=== PATIENT | female | born 1935 | race Caucasian/White ===

== ENCOUNTER → 2016-08-30 | Outpatient (CLI) | payer OTHER ==
--- NOTE | 2016-08-30 19:01 | US ---
Limited Right Upper Quadrant Ultrasound Indication: Post biliary stent placement. Evaluate ductal dilatation. The patient is not having an y other treatment. Technique: Right upper quadrant ultrasound is performed. Comparison: July 08, 2016. Findings: The degree of intrahepatic biliary duct dilatation is significantly reduced, although ther e is still mild ductal dilatation remaining. There is debris in the pancreatic duct, measuring about 6 mm in size, that is echogenic, that is unchanged. Pancreatic lesion is again noted. The liver is otherwise homogeneous, without intrinsic mass. The main portal vein is patent. The gal lbladder has been surgically removed. The common duct has a stent in it and is patent. Sonographic Garcia sign is negative. The right kidney measures 9.2 x 5.2 x 4.4 cm. The cortex is normal at 1 cm. There is a moderate minerva unt of bowel gas. Impression: 1. Significant decrease in intrahepatic biliary dilatation, consistent with a continued patency of t he common duct stent. 2. Echogenic material in the pancreatic duct that is unchanged from a prior ultrasound. 3. Pancreatic mass is unchanged. I have sent the patient to the lab today for some preliminary LFT check just to confirm decreasing LF Ts. Otherwise, I am assuming that this patient will continue down the route of no intervention.
== END ==
LOC: FIMAGING 12:29
PROVIDERS: ATTEND Radiology Diagnostic Radiology
DX: Z09 Encounter for follow-up examination after completed treatment for conditions other than malignant neoplasm (principal); Z96.89 Presence of other specified functional implants; K86.89 Other specified diseases of pancreas; Z01.812 Encounter for preprocedural laboratory examination

== ENCOUNTER 2016-10-13 15:07 | Inpatient (IN) | payer OTHER ==
--- NOTE | 2016-10-13 15:21 | EDPHY ---
H & P Time Seen by Provider: 10/13/16 15:09 HPI/ROS: CHIEF COMPLAINT: Urinary frequency. HISTORY OF PRESENT ILLNESS: The patient is an 81 year old female, brought in by EMS, with history of retroperitoneal mass, who presents with urinary frequency that started last night. The patient received an iron infusion yesterday and felt very worn out after, she states this is typical after receiving infusions. She went to bed around 9:30 pm and felt mild abdominal pain and urinary frequency. Urinary frequency has continued throughout the day. Patient feels chilled, but has not taken her temperature. She denies dysuria or hematuria. No recent cough, chest pain, or cold-like symptoms. During transport she was febrile at 100, pulse 70, BP 157/100. REVIEW OF SYSTEMS: A comprehensive 10 point review of systems is otherwise negative aside from elements mentioned in the history of present illness. Past Medical/Surgical History: Retroperitoneal mass, Pacemaker, Atrial fibrillation, CHF, HTN, MVR, Hypothyroidism, PE, Chronic left knee pain. Social History: Lives at home alone. Sees Dr. Roman and Dr. Olivera. Smoking Status: Never smoked Physical Exam: General Appearance: Alert, pleasant Eyes: Pupils equal and round, no conjunctival pallor or injection ENT, Mouth: Mucous membranes moist Neck: Normal inspection Respiratory: Lungs are clear to auscultation Cardiovascular: Regular rate and rhythm, 2/6 systolic murmur Gastrointestinal: Abdomen is soft and non-tender Neurological: A&O, nonfocal, normal gait Skin: Warm and dry, no rash Extremities: Nontender, no pedal edema Psychiatric: Mood and affect normal Constitutional: Initial Vital Signs Temperature (C) 37.1 C 10/13/16 15:42 Heart Rate 70 10/13/16 15:42 Respiratory Rate 20 10/13/16 15:42 Blood Pressure 166/83 H 10/13/16 15:42 O2 Sat (%) 94 10/13/16 15:42 O2 Delivery Mode Room Air Allergies/Adverse Reactions: diltiazem [Diltiazem] Allergy (Severe, Verified 08/23/15 00:57) Respiratory Arrest SYNVIX Allergy (Intermediate, Uncoded 08/23/15 00:57) Home Medications: Medication Instructions Recorded Clorazepate Dipotassium [Tranxene 3.75 mg PO HS 07/08/16 T-Tab (*)] Estradiol [Vivelle-Dot 0.05MG (*)] 0.05 mg TD BARFIELD 07/08/16 Herbals/Supplements -Info Only 1 ea PO DAILY 07/08/16 Hydrochlorothiazide [HCTZ (*)] 25 mg PO DAILY 07/08/16 Potassium Cl [Klor-Con 20 meq (*)] 20 meq PO DAILY@1600 07/08/16 Verapamil ER [Calan SR/ER 120MG 120 mg PO HS 07/08/16 (*)] Tretinoin [Retin-A] 1 nikky TP DAILY 10/13/16 Medical Decision Making - Diagnostics Imaging: Study: X-ray of the chest was obtained. Results: No acute disease. I viewed the images myself on the PACS system. ED Course/Re-evaluation: UA was sent to look for infection. Plan to check lactic acid due to low grade fever and urinary complaints. 650mg Tylenol PO was ordered for fever. Chest x- ray is pending. CBC and BMP ordered. Does not meet SIRS criteria, given lack of fever. 1615: Patient declines Tylenol because she is concerned about her liver. She will accept Ibuprofen. UA shows elevated leukocyte esterase. Urine culture was sent. Initial lactate was 2.4. Patient was started on 1gm Rocephin IV. IVF 30ml/kg per severe sepsis protocol. Does not meet SIRS criteria, though given fever and chills at home, will assume fever greater than 38.3 at home. Pt's VS stable, normal HR and BP. Plan to admit. 1620: I spoke to Dr. Murray, who accepts the patient for admission. Patient received 600mg Ibuprofen. Differential Diagnosis: Differential diagnosis includes pyelonephritis, cholecystitis, influenza, cellulitis, pneumonia, abscess, meningitis. - Data Points Laboratory Results: Laboratory Results 10/13/16 16:00 10/13/16 16:00 Microbiology Results: MICROBIOLOGY 10/13/16 15:30 Urine,Clean Catch Urine Culture - Preliminary Gram Neg Demetrio Lactose Buyer Five Or More [place] Types Medications Given: Discontinued Medications Acetaminophen (Tylenol) 650 mg PO EDNOW ONE Stop: 10/13/16 15:23 Last Admin: 10/13/16 16:09 Dose: Not Given Aspirin (Aspirin) 325 mg PO ONCE ONE Stop: 10/13/16 20:47 Last Admin: 10/13/16 20:58 Dose: 325 mg Aspirin (Aspirin) 325 mg PO Q6 PRN PRN Reason: HEADACHE Stop: 04/12/17 04:10 Last Admin: 10/14/16 04:14 Dose: 325 mg Clorazepate Dipotassium (Tranxene T-Tab) 3.75 mg PO HS TARIK Stop: 04/11/17 20:59 Last Admin: 10/14/16 21:42 Dose: 3.75 mg Clorazepate Dipotassium (Tranxene T-Tab) 3.75 mg PO ONCE ONE Stop: 10/14/16 04:01 Last Admin: 10/14/16 03:57 Dose: 3.75 mg Sodium Chloride (Ns) 500 mls @ 0 mls/hr IV ONCE ONE PRN Reason: As Directed Stop: 10/13/16 15:23 Last Admin: 10/13/16 16:09 Dose: 500 mls Ceftriaxone Sodium/Dextrose (Rocephin 1 Gm (Premix)) 50 mls @ 100 mls/hr IV EDNOW ONE PRN Reason: Protocol Stop: 10/13/16 16:46 Last Admin: 10/13/16 16:37 Dose: 50 mls Ceftriaxone Sodium/Dextrose (Rocephin 1 Gm (Premix)) 50 mls @ 100 mls/hr IV DAILY TARIK PRN Reason: Protocol Stop: 11/13/16 08:59 Last Admin: 10/14/16 09:04 Dose: 50 mls Sodium Chloride (Ns) 1,000 mls @ 50 mls/hr IV CONT TARIK Stop: 04/11/17 17:59 Last Admin: 10/13/16 20:19 Dose: 1,000 mls Sodium Chloride (Ns *For Sepsis Order Set Only*) 1,633 ml 30 ml/kg (1633 ml) IV EDNOW ONE Stop: 10/13/16 16:18 Last Admin: 10/13/16 16:37 Dose: 1,633 ml Departure - Departure Disposition: [facility] Inpatient Acute Clinical Impression: Urinary tract infection Qualifiers: Urinary tract infection type: site unspecified Hematuria presence: with hematuria Qualified Code(s): N39.0 - Urinary tract infection, site not specified Condition: Good Report Scribed for: Donna Mcmullen Report Scribed by: Keren Delaney Date of Report: 10/13/16 Time of Report: 15:21 Physician Review and Approval Statement: 10/13/16 15:21 Portions of this note were transcribed by a medical front desk specialist. I personally performed the history, physical exam, and medical decision-making; and confirmed the accuracy of the information in the transcribed note.
[2016-10-13] MEDS ORDERED: ACETAMINOPHEN 325 MG TAB PO ONE (15:22)
[2016-10-13] MEDS ORDERED: NS 500 ML IV ONE (15:22)
[2016-10-13 15:47] LABS: COLOR YELLOW; LEUKOCYTE ESTERASE,URINE TRACE (NEGATIVE); NITRITE,URINE NEGATIVE (NEGATIVE)
[2016-10-13 16:10] LABS: % IMMATURE GRANULYOCYTES 0.5 % (0.0-1.1); ABSOLUTE IMMATURE GRANULOCYTES 0.07 10^3/uL (0.00-0.10); ADD DIFF? NO; ADD MORPH? NO; ADD SCAN? NO; ATYPICAL LYMPHOCYTE FLAG 10 (0-99); FRAGMENT RBC FLAG 0 (0-99); HEMATOCRIT 34.1 % (38.0-47.0); HEMOGLOBIN 10.9 g/dL (12.6-16.3); LEFT SHIFT FLG 0 (0-99); LIPEMIA HEMOLYSIS FLAG 80 (0-99); MEAN CELL HEMOGLOBIN 29.9 pg (27.9-34.1); MEAN CELL VOLUME 93.7 fL (81.5-99.8); MEAN PLATELET VOLUME 9.5 fL (8.7-11.7); PLATELET CLUMPS FLAG 0 (0-99); PLATELET COUNT 364 10^3/uL (150-400); RED BLOOD CELL COUNT 3.64 10^6/uL (4.18-5.33); RED CELL DISTRIBUTION WIDTH 17.9 % (11.5-15.2)
[2016-10-13 16:10] LABS: BACTERIA NONE SEEN /hpf (NONE SEEN); MUCUS NONE SEEN /lpf (NONE-1+)
[2016-10-13] MEDS ORDERED: NS 1,000 ML BAG *FOR SEPSIS ORDER SET ONLY IV ONE (16:17)
[2016-10-13] MEDS ORDERED: IBUPROFEN 600 MG TAB PO ONE (16:30)
[2016-10-13 16:42] LABS: ANION GAP 12 mEq/L (8-16); CARBON DIOXIDE 24 mEq/l (22-31); CHLORIDE 102 mEq/L (97-110); CREATININE 0.4 mg/dL (0.6-1.0); GLOMERULAR FILTRATION RATE > 60; GLUCOSE 85 mg/dL (70-100); POTASSIUM 3.7 mEq/L (3.5-5.2); SODIUM 138 mEq/L (134-144)
[2016-10-13 17:06] LABS: LACGHOST ORDER
[2016-10-13 17:38] LABS: ALBUMIN 3.9 g/dL (3.5-5.0); BILIRUBIN,TOTAL 0.8 mg/dL (0.1-1.4); BILIRUBIN-CONJUGATED 0.4 mg/dL (0.0-0.5); BILIRUBIN-UNCONJUGATED 0.4 mg/dL (0.0-1.1); TOTAL PROTEIN 7.3 g/dL (6.3-8.2)
[2016-10-13] MEDS ORDERED: ONDANSETRON DISINTEGRATING 4 MG TAB PO PRN (17:56)
[2016-10-13] MEDS ORDERED: ONDANSETRON 4 MG/2 ML VIAL IVP PRN (17:56)
[2016-10-13] MEDS ORDERED: ACETAMINOPHEN 325 MG TAB PO PRN (17:56)
[2016-10-13] MEDS: NS 1,000 ML IV SCH ×2 (18:25→20:19)
[2016-10-13] MEDS ORDERED: IOPAMIDOL (ISOVUE 370) 100 ML BTL IV ONE (18:27)
--- NOTE | 2016-10-13 19:20 | CPEKG ---
Heart Rate: 70 RR Interval: 857 P-R Interval: 210 QRSD Interval: 124 QT Interval: 480 QTC Interval: 519 P [place]: 0 QRS [place]: 125 T Wave [place]: -79 EKG Severity - ABNORMAL ECG - EKG Impression: VENTRICULAR-PACED RHYTHM Electronically Signed By: Justin Bee 14-Oct-2016 14:59:34
--- NOTE | 2016-10-13 20:23 | GHP ---
[f rep st] HISTORY AND PHYSICAL DATE OF ADMISSION: 10/13/2016 CHIEF COMPLAINT: Urinary frequency and fatigue. HISTORY OF PRESENT ILLNESS: The patient is an 81-year-old female with a history of diastolic heart failure and bovine mitral valve replacement as well as atrial fibrillation with a pacemaker who was recently diagnosed with ampullary cancer and presents to the emergency department with urinary frequency and fatigue. She reports developing urinary frequency last night and was up to the bathroom every 30 minutes throughout the night. She has also endorsed some mild suprapubic discomfort. She denies flank pain, nausea, vomiting, or diarrhea. She denies fevers. She also describes an episode of complete left visual field loss which occurred greater than 24 hours ago. The symptoms lasted for less than an hour and have since completely resolved. She did not seek medical care at that time. However, since then she has felt fatigued and dizzy and then developed urinary symptoms as above. In the emergency department, she met criteria for severe sepsis, was given a 30 cc/kg fluid bolus in addition to 1 dose of IV ceftriaxone after blood and urine cultures were obtained. She is admitted to the hospital for further management. PAST MEDICAL HISTORY: 1. Ampullary cancer. 2. 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 3. History of diastolic heart failure. 4. History of bovine mitral valve replacement. 5. Atrial fibrillation, status post pacemaker. 6. Hypertension. 7. History of pulmonary embolism. 8. Osteoporosis. PAST SURGICAL HISTORY: Tonsillectomy, hysterectomy, mitral valve replacement, appendectomy, cholecystectomy, and abdominal hernia repair. FAMILY HISTORY: Positive for type 2 diabetes in her brother. 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 She lives independently in [place]. She has a son in [place], [place]. She reports occasional glass of wine. She denies tobacco or drug use. REVIEW OF SYSTEMS: A 10-point review of systems was performed and is negative except as per HPI. OBJECTIVE: VITAL SIGNS: Temperature is 37.6, blood pressure 123/74, heart rate 80, respiratory rate 16. She is 95% on room air. GENERAL: The patient is awake, alert, oriented, in no acute distress. HEENT: Head is atraumatic, normocephalic. Pupils equal, round, and reactive to light. Extraocular muscles are intact. Oropharynx is clear. Mucous membranes are moist. NECK: Supple. She has 4-6 cm of JVD. HEART: Regular rate and rhythm. A 3/6 systolic ejection murmur. LUNGS: Clear auscultation bilaterally. ABDOMEN: Soft, nondistended. She has mild suprapubic tenderness without rebound, rigidity, or guarding. There is a ventral wall hernia detected in the right abdomen; this is nontender and reducible. EXTREMITIES: Without cyanosis, clubbing, or edema. NEUROLOGIC: She has no facial asymmetry. Speech is fluent. Pronator drift is negative. There is no visual field deficit. LABORATORY DATA: CBC reveals a white blood cell count of 15 with 89% neutrophils. Initial lactate is elevated at 2.4. Repeat lactate after fluid boluses is 1.5. Complete metabolic panel shows normal electrolytes. Creatinine 0.4. Normal LFTs. Urinalysis shows 10-15 white cells, 10-15 red cells, and trace leukocytes, but negative bacteria and negative nitrites. Chest x-ray is personally viewed by me. There is no evidence of infiltrate or consolidation. There are some subtle Davon B lines. No pleural effusions or teo pulmonary edema. CT angiogram head and neck is pending. ASSESSMENT AND PLAN: The patient is an 81-year-old female with a history of ampullary cancer, biliary obstruction with a biliary stent in place as well as diastolic heart failure who presents to the emergency department with urinary frequency, fatigue, and transient visual field loss. 1. Urinary tract infection. The patient does not meet SIRS criteria for sepsis. Her initial lactate was elevated, though normalized after IV fluid bolus. She is afebrile without hypotension or tachycardia. Her UA is not terribly impressive for a UTI. However, given her symptoms we will treat with IV ceftriaxone and await culture data. UCx and BCx's are pending. Her LFTs are normal and she has no right upper quadrant pain so my suspicion for a biliary source of infection is low. 2. Visual field deficit - complete loss of her left visual field for ~1 hr. This symptom was transient and is completely resolved for the past 24 hours. She is unable to undergo MRI due to the presence of a pacemaker. Will proceed with CTA. After these studies are completed and its confirmed there is no evidence of hemorrhage, will likely treat the patient with daily aspirin, especially in the setting of her atrial fibrillation without anticoagulation. Also, check lipid status and consider addition of statin. Consider Neurology consult. 3. Ampullary cancer causing biliary obstruction, status post biliary stent placement in August 2015. As above, she has no pain with normal LFTs. Her primary oncologist is Dr. Lerma. She has opted to not proceed with treatment and states she has 6-9 months to live. She is DNR but is otherwise open to medical interventions of antibiotics for suspected infection as above. 4. Diastolic heart failure. Although her chest x-ray is subtly suggestive of early congestive heart failure, she is not hypoxic nor tachypneic, and has no symptoms such as orthopnea, paroxysmal nocturnal dyspnea or lower extremity edema. Therefore, I will defer diuresis at this time. We will provide some very gentle hydration overnight with close monitoring of her respiratory status. 5. Atrial fibrillation - S/P Pacemaker. Check EKG. She is not on any AV chico blocking agents nor is she anticoagulated for reasons which are unclear. 6. Hypertension. I am going to hold her hydrochlorothiazide and verapamil given her blood pressure in the 120s/70s. We can resume these tomorrow as indicated. 7. Deep venous thrombosis prophylaxis. Lovenox. Start tomorrow. 8. Code status. I did discuss code status with the patient. She is DNR, but is open to other medical interventions such as antibiotics. 9. Disposition. Patient is admitted to inpatient status. She will likely require greater than 48 hours hospitalization for ongoing management of her suspected urinary tract infection and weakness. PT, OT consults are requested. /[id number]/MODL MTDD
[2016-10-13] MEDS ORDERED: ASPIRIN 325 MG TAB PO ONE (20:46)
[2016-10-13] MEDS: CLORAZEPATE 7.5 MG TAB PO SCH (22:14)
[2016-10-14] MEDS ORDERED: CLORAZEPATE 7.5 MG TAB PO ONE (04:00)
[2016-10-14] MEDS ORDERED: ASPIRIN 325 MG TAB PO PRN ×2 (04:11→07:44)
[2016-10-14 06:05] LABS: % IMMATURE GRANULYOCYTES 0.4 % (0.0-1.1); ABSOLUTE IMMATURE GRANULOCYTES 0.06 10^3/uL (0.00-0.10); ADD DIFF? NO; ADD MORPH? NO; ADD SCAN? NO; ATYPICAL LYMPHOCYTE FLAG 0 (0-99); FRAGMENT RBC FLAG 10 (0-99); HEMATOCRIT 27.4 % (38.0-47.0); HEMOGLOBIN 8.9 g/dL (12.6-16.3); LEFT SHIFT FLG 0 (0-99); LIPEMIA HEMOLYSIS FLAG 80 (0-99); MEAN CELL HEMOGLOBIN 29.9 pg (27.9-34.1); MEAN CELL HEMOGLOBIN CONCENTR. 32.5 g/dL (32.4-36.7); MEAN CELL VOLUME 91.9 fL (81.5-99.8); PLATELET CLUMPS FLAG 0 (0-99); PLATELET COUNT 293 10^3/uL (150-400); RED BLOOD CELL COUNT 2.98 10^6/uL (4.18-5.33); RED CELL DISTRIBUTION WIDTH 18.6 % (11.5-15.2)
[2016-10-14 06:26] LABS: ANION GAP 11 mEq/L (8-16); CALCIUM 8.6 mg/dL (8.5-10.4); CARBON DIOXIDE 21 mEq/l (22-31); CHLORIDE 105 mEq/L (97-110); CHOLESTEROL 102 mg/dL (140-220); CHOLESTEROL/HDL RATIO 3.29 RATIO (1.00-4.44); CREATININE 0.5 mg/dL (0.6-1.0); GLOMERULAR FILTRATION RATE > 60; GLUCOSE 77 mg/dL (70-100); HIGH DENSITY LIPOPROTEIN 31 mg/dL (40-85); LDL/HDL RATIO 1.97 RATIO (1.00-3.22); LOW DENSITY LIPOPROTEIN 61 mg/dL (80-100); NON-HIGH DENSITY LIPOPROTEIN 71 mg/dL (90-129); POTASSIUM 3.4 mEq/L (3.5-5.2); SODIUM 137 mEq/L (134-144); TRIGLYCERIDE 54 mg/dL (35-135); VERY LOW DENSITY LIPOPROTEINS 10 mg/dL (8-25)
[2016-10-14] MEDS: ENOXAPARIN 40 MG/0.4 ML SYR SC SCH (10:25)
[2016-10-14] MEDS: ASPIRIN 81 MG CHEWABLE TAB PO SCH (10:25)
[2016-10-14] MEDS: HYDROCHLOROTHIAZIDE 25 MG TAB PO SCH (10:50)
--- NOTE | 2016-10-14 13:27 | HOSPPROG ---
Hospitalist Progress Note Assessment/Plan: 81y female presents to the emergency room with complaints of urinary frequency and generalized weakness. My 1st encounter with the patient. Chart reviewed. # urinary frequency No signs of urinary tract infection Discontinue antibiotic therapy Follow urine culture # headache/visual field deficit Unclear etiology Unable to MRI brain secondary to pacemaker Continue supportive care # leukocytosis Unclear etiology Possible viral infection Recheck labs in the a.m. # history of ampullary cancer Consult Oncology per patient's request Plan for outpatient hospice/palliative care # chronic anemia Patient receives IV iron infusions No signs of bleeding Deferred Hematology # history of wandering pacemaker Stable currently # history of atrial fibrillation and diastolic heart failure No acute exacerbation at this time # history of hypertension Blood pressure medications on hold Patient wishes to restart her hydrochlorothiazide due to swelling Educated about potential risks of blood pressure response Patient wishes to proceed anyway # generalized weakness Unsafe to be discharged home currently Continue PT OT eval and treat # disposition Unclear Continue to follow patient's hospital course Await oncology consult Continue supportive care with laboratory evaluation in the a.m. Reviewed patient's plan of care and supportive management with case management. Subjective: Continues to complain of a headache. This does not feel overall well. Feels tired and weak. Objective: Vital Signs Temp Pulse Resp BP Pulse Ox 37.2 C 70 16 139/61 H 95 10/14/16 08:00 10/14/16 08:00 10/14/16 08:00 10/14/16 10:50 10/14/16 08:00 Laboratory Results 10/14/16 04:26 10/14/16 04:26 10/13/16 10/14/16 10/15/16 05:59 05:59 05:59 Intake Total 1500 Output Total 375 Balance 1125 - Physical Exam Constitutional: no apparent distress, not in pain, cachectic Eyes: PERRL, anicteric sclera, EOMI Ears, Nose, Mouth, Throat: moist mucous membranes, hearing normal, ears appear normal Cardiovascular: No JVD, No tachycardia, No edema Respiratory: no respiratory distress, no rales or rhonchi, reduced air movement Gastrointestinal: No tenderness, No ascites, No guarding Skin: warm, normal color, No erythema Musculoskeletal: no joint effusions, abnormal gait, generalized weakness Neurologic: AAOx3 Psychiatric: interacting appropriately, not anxious, not encephalopathic ICD10 Worksheet Patient Problems: Problems Problem Status Onset Urinary tract infection Acute Abdominal pain Acute Abnormal findings on imaging of biliary tract Acute CHF (congestive heart failure) Acute Chest wall pain Acute Dehydration Acute Generalized weakness Acute Palliative care encounter Acute Sacral fracture, closed Acute UTI (urinary tract infection) Acute Vomiting Acute
[2016-10-14] MEDS: POTASSIUM CL 20 MEQ TAB PO SCH (17:45)
[2016-10-14] MEDS: LIDOCAINE 5% 1 EA PATCH TD SCH (20:35)
[2016-10-14] MEDS: CLORAZEPATE 7.5 MG TAB PO SCH (21:42)
[2016-10-14] MEDS: PATCH REMOVAL 1 EA PATCH TD SCH (21:43)
[2016-10-14] MEDS: VERAPAMIL ER 120 MG TAB PO SCH (23:40)
[2016-10-15 05:23] LABS: HEMATOCRIT 29.4 % (38.0-47.0); HEMOGLOBIN 9.5 g/dL (12.6-16.3); MEAN CELL HEMOGLOBIN 29.5 pg (27.9-34.1); MEAN CELL HEMOGLOBIN CONCENTR. 32.3 g/dL (32.4-36.7); MEAN CELL VOLUME 91.3 fL (81.5-99.8); RED BLOOD CELL COUNT 3.22 10^6/uL (4.18-5.33); RED CELL DISTRIBUTION WIDTH 18.3 % (11.5-15.2)
[2016-10-15 05:37] LABS: ANION GAP 10 mEq/L (8-16); CARBON DIOXIDE 21 mEq/l (22-31); CHLORIDE 107 mEq/L (97-110); CREATININE 0.5 mg/dL (0.6-1.0); GLOMERULAR FILTRATION RATE > 60; GLUCOSE 118 mg/dL (70-100); POTASSIUM 4.1 mEq/L (3.5-5.2); SODIUM 138 mEq/L (134-144)
[2016-10-15 06:31] LABS: % SATURATION 98 % (20-55); TOTAL IRON BINDING CAPACITY 294 ug/dL (260-490)
[2016-10-15] MEDS: HYDROCHLOROTHIAZIDE 25 MG TAB PO SCH (08:10)
--- NOTE | 2016-10-15 09:31 | HOSPPROG ---
Hospitalist Progress Note Assessment/Plan: 81y female presents to the emergency room with complaints of urinary frequency and generalized weakness. # urinary frequency Cx growing klebsilla cont rocephin, transition to PO if needed # headache/visual field deficit Unclear etiology Unable to MRI brain secondary to pacemaker resolved, potentially related to UTI # leukocytosis UTI, resolved # history of ampullary cancer Consult Oncology per patient's request Plan for outpatient hospice/palliative care no aggressive treatment # chronic anemia Patient receives IV iron infusions No signs of bleeding stable # history of wandering pacemaker Stable currently # history of atrial fibrillation and diastolic heart failure No acute exacerbation at this time # history of hypertension Blood pressure medications restarted Stable # generalized weakness Unsafe to be discharged home currently per PT Continue PT OT eval and treat Pt wishes to go home with [facility] Cont to evaluate #Wine pt has a glass of red wine with dinner cont here #Pain request for 3 lidoderm patches cont # disposition Unclear potentially in 1-2 days Continue to follow patient's hospital course Continue supportive care Reviewed patient's plan of care and supportive management with case management. Plan for outpatient Hospice/palliative plan Reviewed with Dr Murray Subjective: Feeling better today. No headache. No specific issues. Does feel weak. Objective: Vital Signs Temp Pulse Resp BP Pulse Ox 36.4 C 70 16 112/51 L 94 10/15/16 08:00 10/15/16 08:00 10/15/16 08:00 10/15/16 08:00 10/15/16 08:00 Laboratory Results 10/15/16 04:18 10/15/16 04:18 10/14/16 10/15/16 10/16/16 05:59 05:59 05:59 Intake Total 1500 930 Output Total 375 1460 Balance 1125 -530 - Physical Exam Constitutional: no apparent distress, appears nourished, not in pain Eyes: PERRL, anicteric sclera, EOMI Ears, Nose, Mouth, Throat: moist mucous membranes, hearing normal, ears appear normal Cardiovascular: No JVD, No tachycardia, No edema Respiratory: no respiratory distress, no rales or rhonchi, reduced air movement Gastrointestinal: No tenderness, No ascites, No guarding Skin: warm, normal color, No erythema Musculoskeletal: full muscle strength, normal joint ROM, no joint effusions, generalized weakness Neurologic: AAOx3 Psychiatric: interacting appropriately, not encephalopathic ICD10 Worksheet Patient Problems: Problems Problem Status Onset Vomiting Acute Abdominal pain Acute UTI (urinary tract infection) Acute Sacral fracture, closed Acute CHF (congestive heart failure) Acute Chest wall pain Acute Dehydration Acute Generalized weakness Acute Abnormal findings on imaging of biliary tract Acute Palliative care encounter Acute Urinary tract infection Acute
[2016-10-15] MEDS: ASPIRIN 81 MG CHEWABLE TAB PO SCH (10:38)
[2016-10-15] MEDS: ENOXAPARIN 40 MG/0.4 ML SYR SC SCH (10:42)
--- NOTE | 2016-10-15 14:08 | GCON ---
[f rep st] CONSULTATION ONCOLOGY CONSULTATION NOTE DATE OF CONSULTATION: 10/15/2016 REASON FOR CONSULTATION: Recent history of adenocarcinoma involving ampulla of Vater. 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 She presented to the hospital with connor iary obstruction and a stent was placed. The patient's additional staging studies showed no clear e vidence of metastatic disease. She met with Dr. Patsy Lerma. Options were discussed including surg henry (Whipple procedure). The patient declined surgery. Palliative treatment with chemotherapy and radiation was discussed. The patient declined palliative treatment. The patient has opted to pursu e best supportive care and does not want active treatment of her malignancy. She was last seen in the office by Dr. Lerma on October 01. She has not had any significant abdominal pain related to her illness. She is now admitted to the hospital with a Klebsiella urinary tract infection. She also had a brief episode (30 minutes) of left visual field loss. She has had no previous episodes. Her vision has completely returned and is normal per her report. A CT angiogram of the neck and head showed no lia ar source of emboli. When seen today, the patient is comfortable. She denies abdominal pain or bloating. She denies fla nk pain or dysuria. She denies headache, visual changes, extremity weakness or numbness. MEDICAL HISTORY: 1. Atrial fibrillation. 2. Pacemaker placement. 3. Remote history of pulmonary emboli. 4. History of rheumatic heart disease. 5. Status post bovine mitral valve replacement. 6. Osteoporosis. 7. Diastolic heart failure. 8. Hypothyroidism. 9. Osteoporosis. FAMILY MEDICAL HISTORY: Patient's father at age 71 of gastric carcinoma. She has 10 siblings. One brother and one sister of unknown malignancy. SOCIAL HISTORY: The patient lives independently in [place]. She was 14 years ago. She has a daughter, as well as a son Ihsan. She is a nonsmoker. She drinks wine with dinner each evening. REVIEW OF SYSTEMS: As outlined above. PHYSICAL EXAM: GENERAL: Pleasant, elderly female, who is lying in bed, in no acute distress. HEEN T: Pupils equal, sclerae are anicteric. No evidence of scleral icterus. HEART: Regular without m urmur. LUNGS: Clear bilaterally. No flank tenderness bilaterally. ABDOMEN: Soft, nontender, non distended with no epigastric tenderness or mass. EXTREMITIES: No extremity swelling or edema. RODNEY ROLOGIC: Patient is alert, oriented, and appropriate. Speech fluent. IMAGING STUDIES: As outlined above. LABORATORY STUDIES: White count 8.6, hemoglobin 9.5, hematocrit 29.4, platelet count is 316,000. S odium 138, potassium 4.1, chloride 107, bicarb 21, BUN 12, creatinine 0.5, calcium 9.0. Most recent bilirubin is 0.8. IMPRESSION: 1. 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 2. Klebsiella urinary tract infection. 3. History of left visual field deficit in patient with history of atrial fibrillation and valvular heart disease (resolved without intervention). 4. Multifactorial anemia. The patient is a pleasant 81-year-old female who was recently diagnosed with a locally advanced lan ocarcinoma involving the ampulla of Vater. She has been seen by my partner, Dr. Patsy Lerma. Treat ment options were reviewed in detail with the patient. She has opted for no treatment. The patient understands that without treatment her ampullary adenocarcinoma represents an ultimately terminal i llness. She has an expected survival of 6-9 months. She reaffirmed her wish not to pursue active t reatment today. She is understanding and accepting of her malignancy and is very adamant that she w ants to focus on quality of life as her greatest concern. Her Klebsiella UTI appears to be responding to antibiotic treatment. This will be continued. She w ill likely be transitioned to oral antibiotics in near future and likely sent home. We discussed her recent neurologic event. She does have a history of atrial fibrillation and valvul ar heart disease. She is not currently on anticoagulation. She wishes to avoid this. She was star westley on 81 mg aspirin here in the hospital, but has declined it. She states she gets severe epistaxi s with aspirin. We discussed that her recent neurologic event places her at risk for subsequent ashley nts and that considering taking anticoagulants specifically aspirin would potentially decrease her r isk. She acknowledges this, but states that in line with her wish to pursue quality of life as her greatest concern, she wants to take no further medicines and thus declined aspirin therapy or any fo rm of anticoagulation. She will follow up with Dr. Lerma once discharged. Her questions were answered today. Total time for today's visit was approximately 40 minutes. /[id number]/MODL
[2016-10-15] MEDS: LIDOCAINE 5% 1 EA PATCH TD SCH ×2 (15:48→16:14)
[2016-10-15] MEDS: POTASSIUM CL 20 MEQ TAB PO SCH (15:49)
[2016-10-15] MEDS: RED WINE 120 ML BOTTLE PO SCH (19:09)
[2016-10-15] MEDS: VERAPAMIL ER 120 MG TAB PO SCH (22:00)
[2016-10-15] MEDS: CLORAZEPATE 7.5 MG TAB PO SCH (22:01)
[2016-10-16] MEDS: PATCH REMOVAL 1 EA PATCH TD SCH ×2 (00:25→21:11)
[2016-10-16] MEDS: HYDROCHLOROTHIAZIDE 25 MG TAB PO SCH (09:25)
[2016-10-16] MEDS: ENOXAPARIN 40 MG/0.4 ML SYR SC SCH (09:27)
[2016-10-16] MEDS: ASPIRIN 81 MG CHEWABLE TAB PO SCH (09:30)
--- NOTE | 2016-10-16 14:03 | HOSPPROG ---
Hospitalist Progress Note Assessment/Plan: 81y female presents to the emergency room with complaints of urinary frequency and generalized weakness. # Acute UTI secondary to Klebsiella - cont rocephin, # Acute headache/visual field deficit- new neurologic symptom possibly related to her atrial fibrillation versus symptom related to her acute urinary tract infection- Unable to MRI brain secondary to pacemaker - patient refusing aspirin even with a known risk of recurrent is cerebral vascular incidence if secondary to AFib # new Dx of ampullary cancer- status post stent placement- patient denies pain - understands expected progression - Plan for outpatient hospice/palliative care - no aggressive treatment # leukocytosis secondary to UTI, resolved- oxygen saturations 94% on room air # chronic anemia- Patient receives IV iron infusions- No signs of bleeding -H&H stable 04/22 # h/o atrial fibrillation EKG( personally reviewed and interpreted) shows V paced rhythm - patient refusing aspirin # history of hypertension- Blood pressure medications restarted # generalized weakness - per PT OT-Unsafe to be discharged home - Continue PT OT eval and treat - with all appropriate information Pt still wishes to go home with [facility] #Wine- pt has a glass of red wine with dinner - cont here #Pain -request for 3 lidoderm patches # history of wandering pacemaker # disposition- tomorrow with home health- plan for outpatient consultation of hospice I discussed the case with case management- we will help patient coordinate home health support for discharge tomorrow Subjective: denies abdominal pain Objective: Vital Signs Temp Pulse Resp BP Pulse Ox 36.4 C 69 14 121/53 H 95 10/16/16 09:19 10/16/16 09:19 10/16/16 09:19 10/16/16 09:19 10/16/16 09:19 Laboratory Results 10/15/16 04:18 10/15/16 04:18 10/15/16 10/16/16 10/17/16 05:59 05:59 05:59 Intake Total 930 100 Output Total 1460 Balance -530 100 - Physical Exam Constitutional: chronically ill appearing Eyes: anicteric sclera Ears, Nose, Mouth, Throat: moist mucous membranes Cardiovascular: regular rate and rhythym, systolic murmur Respiratory: no respiratory distress, no rales or rhonchi Gastrointestinal: normoactive bowel sounds, soft, non-tender abdomen Genitourinary: no bladder fullness Skin: warm, normal color Musculoskeletal: No asymmetric calves Neurologic: AAOx3 Psychiatric: interacting appropriately, not anxious Lymph, Heme, Immunologic: no cervical LAD ICD10 Worksheet Patient Problems: Problems Problem Status Onset Urinary tract infection Acute Abdominal pain Acute Abnormal findings on imaging of biliary tract Acute CHF (congestive heart failure) Acute Chest wall pain Acute Dehydration Acute Generalized weakness Acute Palliative care encounter Acute Sacral fracture, closed Acute UTI (urinary tract infection) Acute Vomiting Acute
[2016-10-16] MEDS: LIDOCAINE 5% 1 EA PATCH TD SCH (14:46)
[2016-10-16] MEDS: POTASSIUM CL 20 MEQ TAB PO SCH (16:15)
[2016-10-16 17:16] VITALS: PULSE 70
[2016-10-16] MEDS: RED WINE 120 ML BOTTLE PO SCH (18:15)
[2016-10-16] MEDS ORDERED: DOCUSATE SODIUM 100 MG CAP PO PRN (20:09)
[2016-10-16] MEDS: CLORAZEPATE 7.5 MG TAB PO SCH (21:11)
[2016-10-16] MEDS: VERAPAMIL ER 120 MG TAB PO SCH (21:11)
[2016-10-17 08:47] VITALS: BP 130/57; RESP 14; TEMP 97.6; O2SAT 93
[2016-10-17] MEDS: ASPIRIN 81 MG CHEWABLE TAB PO SCH (08:48)
[2016-10-17] MEDS: ENOXAPARIN 40 MG/0.4 ML SYR SC SCH (08:59)
[2016-10-17] MEDS ORDERED: ESTRADIOL VIVELLE 0.05 MG PATCH TD SCH (09:00)
[2016-10-17] MEDS: LIDOCAINE 5% 1 EA PATCH TD SCH (09:06)
[2016-10-17] MEDS: HYDROCHLOROTHIAZIDE 25 MG TAB PO SCH (09:06)
--- NOTE | 2016-10-17 10:59 | PDIAF ---
- Diagnosis Diagnosis: uti - ampullary adenocarcinoma Code Status: Do Not Resuscitate - Medication Management Discharge Medications: Medications to Continue on Transfer Clorazepate Dipotassium [Tranxene T-Tab (*)] 3.75 mg PO HS 07/08/16 [Last Taken 10/12/16] Estradiol [Vivelle-Dot 0.05MG (*)] 0.05 mg TD [place] 07/08/16 [Last Taken 10/12/16] Herbals/Supplements -Info Only 1 ea PO DAILY 07/08/16 [Last Taken 10/12/16] Hydrochlorothiazide [HCTZ (*)] 25 mg PO DAILY 07/08/16 [Last Taken 10/13/16] Potassium Cl [Klor-Con 20 meq (*)] 20 meq PO DAILY@1600 07/08/16 [Last Taken ] Verapamil ER [Calan SR/ER 120MG (*)] 120 mg PO HS 07/08/16 [Last Taken 10/12/16 ] Tretinoin [RETIN-A] 1 nikky TP DAILY 10/13/16 [Last Taken 10/12/16] levOFLOXACIN [Levofloxacin] 750 mg PO DAILY #3 tablet 10/17/16 [Last Taken Unknown] Discharge Medications: Refer to the Discharge Home Medication list for PRN reason. - Orders Services needed: Home Care, Registered Nurse, Physical Therapy Home Care Face to Face: I certify that this patient was under my care and that I had the required [id number] encounter meeting the encounter requirements on the discharge day. My findings support the fact that the patient is homebound as defined in CMS Chapter 7 Medicare Benefits Manual 30.1.1, The condition of the patient is such that there exists a normal inability to leave home and consequently, leaving home would require a considerable and taxing effort. Diet Recommendation: no restrictions on diet Diet Texture: Regular Texture Diet - Follow Up Care Current Providers and Referrals: Petar Delgado MD [Primary Care Provider] - As per Instructions
--- NOTE | 2016-10-17 11:13 | GDS ---
[f rep st] DISCHARGE SUMMARY DISCHARGE DIAGNOSES: Include: 1. Acute urinary tract infection secondary to klebsiella. 2. Acute leukocytosis secondary to urinary tract infection. 3. Acute visual field deficits, resolved during hospital stay. 4. New diagnosis of ampullary adenocarcinoma. 5. Chronic anemia. 6. History of atrial fibrillation. 7. Hypertension. HISTORY OF PRESENT ILLNESS: An 81-year-old female with a recent diagnosis of ampullary adenocarcino ma who presents with weakness. For details of the patient's initial presentation, please see the hi story and physical dated 10/13/2016. CONSULTATIVE SERVICES: Oncology. PROCEDURES: 1. On 10/13/2016, patient had a noncontrast CT of the head that showed no acute intracranial abnorm ality. 2. On 10/13/2016, patient had a CTA of the head and neck that showed extensive calcific atheroscler otic plaque at the level of the carotid bulbs with 64% stenosis of the proximal right internal carot id and 50% of the left and a patent vertebrobasilar system. HOSPITAL COURSE BY ISSUE: 1. Acute headache and visual deficits. The patient did have neurologic imaging inconsistent with a cute cerebrovascular event. After extensive discussion about her risk factors for stroke related to untreated atrial fibrillation, the patient has opted to not be treated with aspirin or have additio nal neurologic workup. We were unable to obtain MRI as the patient does have a pacemaker. She is w ell aware of her risks of recurrent vascular events in the future with untreated atrial fibrillation and accepts those risks at the time of discharge. The patient's visual field deficits have resolve d at the time of her disposition. 2. Acute urinary tract infection secondary to klebsiella. The patient was treated with IV ceftriax one during her hospital stay and is being transitioned to oral levofloxacin to complete a full 7-day course. 3. Acute leukocytosis. This resolved with antibiotic therapy. 4. Chronic iron deficiency anemia. The patient has been receiving iron infusions. Her H and H hav e been stable at 9 and 29 during this stay. 5. History of atrial fibrillation. The patient is refusing aspirin therapy at this time. The aidan ent is fully aware of the risks of future cerebrovascular incidents without treatment. 6. Hypertension. We continued her home medications without change. 7. New diagnosis: Ampullary adenocarcinoma. Patient is denying any aggressive treatment. She is interested in establishing hospice care, but would like to do so with her oncologist in the outpatie nt setting after disposition. She is status post stenting and is currently without pain. She will be discharged home with home health agency for supportive care as well as physical therapy. 8. Weakness. Patient's assessments by PT/OT feel it is unsafe for the patient to be discharged latha e independently. The patient is fully aware of the risks, and has chosen not to follow the recommen dations of our therapy team. She is choosing to discharge home with home physical therapy and home care providers. She is most interested in experiencing the last few months of her life independent in her own environment. MEDICATIONS AT THE TIME OF DISPOSITION: Please reference medication reconciliation printed on 10/17. FOLLOWUP APPOINTMENTS: Include: 1. Dr. Lerma with oncology for post disposition followup related to her ampullary adenocarcinoma. 2. Primary care provider in the next 2 weeks for general followup related to her medical comorbidit ies. PENDING STUDIES: None. TIME SPENT: I spent greater than 30 minutes in the planning and coordination of this discharge. /[id number]/MODL
== END 2016-10-17 12:44 | disposition home health service (06) | DRG 690 ==
LOC: EDUNIT# → UNDOADMIN 16:24 → F3E 17:32
PROVIDERS: ADMIT Hospitalist; ATTEND Hospitalist
DX: N39.0 Urinary tract infection, site not specified (principal); B96.1 Klebsiella pneumoniae [K. pneumoniae] as the cause of diseases classified elsewhere; C24.1 Malignant neoplasm of ampulla of Vater; I48.91 Unspecified atrial fibrillation; I11.0 Hypertensive heart disease with heart failure; I50.30 Unspecified diastolic (congestive) heart failure; D50.9 Iron deficiency anemia, unspecified; E03.9 Hypothyroidism, unspecified; H53.40 Unspecified visual field defects; Z66 Do not resuscitate; Z95.0 Presence of cardiac pacemaker; Z95.3 Presence of xenogenic heart valve
CPT/HCPCS: 96365; 97110-GP; 97116-GP; 97162-GP; 97165-GO; 97530-GP; G8978-GP-CK; G8979-GP-CI; G8980-GP-CI; G8987-GO-CJ; G8988-GO-CH; J0696; J1650; Q9967

== ENCOUNTER 2016-10-29 15:50 | Inpatient (IN) | payer OTHER ==
[2016-10-29] MEDS ORDERED: oxyCODONE IR 5 MG TAB PO PRN (16:45)
[2016-10-29] MEDS ORDERED: ONDANSETRON DISINTEGRATING 4 MG TAB PO PRN (16:45)
[2016-10-29] MEDS ORDERED: PROMETHAZINE HCL 25 MG TAB PO PRN (16:45)
[2016-10-29] MEDS ORDERED: ACETAMINOPHEN 325 MG TAB PO PRN (16:45)
[2016-10-29] MEDS ORDERED: ONDANSETRON 4 MG/2 ML VIAL IVP PRN (16:45)
[2016-10-29 17:29] VITALS: PULSE 70
[2016-10-29] MEDS ORDERED: METOCLOPRAMIDE 10 MG/2 ML VIAL IVP PRN (17:33)
[2016-10-29] MEDS ORDERED: GOLYTELY 4000 ML BTL PO ONE (17:33)
--- NOTE | 2016-10-29 18:09 | PDGENHP ---
History and Physical - Chief Complaint fatigue - History of Present Illness 81 yo F w/PMH of adenocarcinoma of ampulla of vater, not undergoing active treatment for it and opting rather for palliative management, admitted with one week of worsening fatigue, loss of appetite and generalized malaise. She has had anemia for at least 2 years, preceding her diagnosis of malignancy, and had been told in the past that she should undergo endoscopic evaluation, which she declined at that time. She instead opted to take iron supplementation, and more recently has undergone IV iron infusions x 2 through her oncologist. When she presented to oncology today, she described the above sxs and was found to have worsening anemia and sent to the hospital for transfusion and for consideration of endoscopy. Patient states that since talking to Dr. Lerma, and especially in light of how poorly she currently feels, she is now willing to undergo endoscopic evaluation. She denies abdominal pain, but she notes she is tender with deep palpation. She has chronic constipation, and performs manual disimpaction periodically, and had her last BM on Tuesday. She has had dark stools since starting iron, has not had n/v. She notes her stools have been more "pellet" shaped recently, but no other changes. She does not take asa, advil or blood thinners. History Information - Allergies/Home Medication List Allergies/Adverse Reactions: diltiazem [Diltiazem] Allergy (Severe, Verified 08/23/15 00:57) Respiratory Arrest SYNVIX Allergy (Intermediate, Uncoded 08/23/15 00:57) Home Medications: Clorazepate Dipotassium [Tranxene T-Tab (*)] 3.75 mg PO HS 07/08/16 [Last Taken 10/12/16] Estradiol [Vivelle-Dot 0.05MG (*)] 0.05 mg TD [place] 07/08/16 [Last Taken 10/12/16] Herbals/Supplements -Info Only 1 ea PO DAILY 07/08/16 [Last Taken 10/12/16] Hydrochlorothiazide [HCTZ (*)] 25 mg PO DAILY 07/08/16 [Last Taken 10/29/16] Potassium Cl [Klor-Con 20 meq (*)] 20 meq PO DAILY@1600 07/08/16 [Last Taken 01/08] Verapamil ER [Calan SR/ER 120MG (*)] 120 mg PO HS 07/08/16 [Last Taken 10/28/16 ] Tretinoin [RETIN-A] 1 nikky TP DAILY 10/13/16 [Last Taken 10/12/16] I have personally reviewed and updated: family history, medical history, social history, surgical history - Past Medical History atrial fibrillation, cancer (adenocarcinoma of ampulla of vater), pulmonary embolism, TIA Additional medical history: Atrial fibrillation s/p PPM. Pulmonary embolism. osteoporosis. Diastolic CHF. Rheumatic heart disease S/P bovine mitral valve replacement - Surgical History Additional surgical history: Tonsillectomy. Hysterectomy. Mitral valve repair. Appendectomy. Cholecystectomy. 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 Has a son in [place], [place] Review of Systems ROS: 10pt was reviewed & negative except for what was stated in HPI & below Physical Exam Temp Pulse Resp BP Pulse Ox 36.6 C 70 16 143/59 H 98 10/29/16 17:28 10/29/16 17:28 10/29/16 17:28 10/29/16 17:28 10/29/16 17:28 Constitutional: no apparent distress, appears nourished Eyes: PERRL, anicteric sclera Ears, Nose, Mouth, Throat: moist mucous membranes, hearing normal Cardiovascular: regular rate and rhythym, no murmur, rub, or gallop, No edema Respiratory: no respiratory distress, no rales or rhonchi, clear to auscultation Gastrointestinal: normoactive bowel sounds, soft, non-tender abdomen, distension , No guarding, No rebound Genitourinary: no bladder tenderness Skin: warm, normal color Musculoskeletal: full muscle strength, no muscle tenderness, No asymmetric calves Neurologic: AAOx3, CN II-XII Intact Psychiatric: interacting appropriately, not anxious, not encephalopathic Lab Data & Imaging Review Enhanced Crossmatch See Detail 10/29/16 17:04 Assessment & Plan Assessment: 81 yo F with PMH of adenocarcinoma of ampulla of vater as well as chronic iron deficiency anemia presenting with acute on chronic, symptomatic anemia # acute on chronic iron deficiency anemia: presumably due to chronic GI blood loss, likely related to her biliary malignancy versus elsewhere in GI tract. Has not had EGD/colonoscopy in the past. Will transfuse prbc tonight given that she is symptomatic and significantly lower than her baseline. Discussed with both oncology and GI--GI will evaluate patient in am and discuss endoscopy options with her at that time, though in this case, the etiology for her bleeding is more likely tumor related and therefore not amenable to intervention. Will monitor h/h overnight. # ampullary adenocarcinoma: patient has opted for palliative management only, does have hx of biliary obstruction s/p biliary stent as well as large duodenal mass, high risk for bowel obstruction. LFTs currently wnl. # a fib: with PPM in place, given severe anemia, have ordered ECG # diastolic heart failure, chronic: with relatively preserved EF of 55%, no e/o decompensation currently # h/o PE: patient has declined AC in the past, not symptomatic # VHD: with hx of rheumatic heart disease and s/p MVR, last echo in 06/2016 showing normally functioning valve # DNR # observation status, plan for transfusion and possible dc in the am if h/h stable, given multiple active conditions she may require IP stay Patient new to my care. Old records reviewed and summarized as above. Care plan reviewed with Dr. Lerma of oncology and Dr. Mabry of GI as above.
[2016-10-29] MEDS: CLORAZEPATE 7.5 MG TAB PO SCH (20:33)
[2016-10-29] MEDS: VERAPAMIL ER 120 MG TAB PO SCH (20:34)
[2016-10-29] MEDS: RED WINE 120 ML BOTTLE PO SCH (20:35)
[2016-10-29] MEDS ORDERED: OLIVE OIL 118 ML BTL ONE (21:36)
[2016-10-30 04:57] LABS: % IMMATURE GRANULYOCYTES 0.5 % (0.0-1.1); ABSOLUTE IMMATURE GRANULOCYTES 0.02 10^3/uL (0.00-0.10); ADD DIFF? NO; ADD MORPH? NO; ADD SCAN? NO; ATYPICAL LYMPHOCYTE FLAG 30 (0-99); FRAGMENT RBC FLAG 0 (0-99); HEMATOCRIT 28.9 % (38.0-47.0); HEMOGLOBIN 9.4 g/dL (12.6-16.3); LEFT SHIFT FLG 0 (0-99); LIPEMIA HEMOLYSIS FLAG 80 (0-99); MEAN CELL HEMOGLOBIN 30.1 pg (27.9-34.1); MEAN CELL HEMOGLOBIN CONCENTR. 32.5 g/dL (32.4-36.7); MEAN CELL VOLUME 92.6 fL (81.5-99.8); MEAN PLATELET VOLUME 9.4 fL (8.7-11.7); PLATELET CLUMPS FLAG 0 (0-99); PLATELET COUNT 308 10^3/uL (150-400); RED BLOOD CELL COUNT 3.12 10^6/uL (4.18-5.33); RED CELL DISTRIBUTION WIDTH 19.6 % (11.5-15.2)
[2016-10-30 05:15] LABS: ANION GAP 10 mEq/L (8-16); CALCIUM 8.9 mg/dL (8.5-10.4); CARBON DIOXIDE 23 mEq/l (22-31); CHLORIDE 105 mEq/L (97-110); CREATININE 0.4 mg/dL (0.6-1.0); GLOMERULAR FILTRATION RATE > 60; GLUCOSE 97 mg/dL (70-100); POTASSIUM 3.3 mEq/L (3.5-5.2); SODIUM 138 mEq/L (134-144)
--- NOTE | 2016-10-30 05:34 | CPEKG ---
Heart Rate: 70 RR Interval: 857 P-R Interval: 202 QRSD Interval: 120 QT Interval: 484 QTC Interval: 523 P [place]: 0 QRS [place]: 110 T Wave [place]: -26 EKG Severity - ABNORMAL ECG - EKG Impression: VENTRICULAR-PACED RHYTHM Electronically Signed By: Rajesh Vee 30-Oct-2016 21:19:20
[2016-10-30] MEDS ORDERED: TRETINOIN TP SCH (09:00)
--- NOTE | 2016-10-30 10:46 | GCON ---
[f rep st] CONSULTATION REFERRING PHYSICIAN: Jelly Donahue MD REASON FOR CONSULTATION: Anemia. CHIEF COMPLAINT: I was asked by Dr. Donahue to see this patient for the evaluation of anemia. HISTORY OF PRESENT ILLNESS: The patient is a pleasant 81-year-old female with a recent diagnosis of ampullary adenocarcinoma. This diagnosis was made approximately 3 months ago. She has had a prior history of iron deficiency anemia. She had not had a prior workup. She ultimately presented to the hospital with fatigue and malaise. Imaging evaluation led to the discovery of biliary tract obstruction. Subsequent endoscopic evaluation led to the diagnosis of ampullary adenocarcinoma. Recently she has been bothered by chronic constipation, fatigue, and malaise. She was seen in the oncology office yesterday with complaints of malaise. Laboratory testing revealed anemia. She was asked to present to the hospital for transfusion and additional anemia workup. She reports dark stools, but she chronically is using iron. 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 She reports no nausea or vomiting. She has had no worsening abdominal discomfort or abdominal pain. ALLERGIES: She reports allergies to diltiazem. OUTPATIENT MEDICINES: Clorazepate, estradiol, herbal supplements, hydrochlorothiazide, potassium, verapamil, and Retin-A. PAST MEDICAL HISTORY: Includes atrial fibrillation, ampullary adenocarcinoma, history of pulmonary embolism, and TIA. She also has a history of osteoporosis , diastolic heart failure, and rheumatic heart disease for which she has had a bovine mitral valve replacement. PAST SURGICAL HISTORY: Includes tonsillectomy, hysterectomy, mitral valve repair, appendectomy, cholecystectomy, and abdominal hernia repair. FAMILY HISTORY: She has a brother with diabetes. SOCIAL HISTORY: She does not smoke. She drinks rarely. 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 REVIEW OF SYSTEMS: A 10-point review was undertaken with the patient and is negative except for those details described in the history of present illness. PHYSICAL EXAMINATION: VITAL SIGNS: Temperature of 36.6, pulse of 70, respirations of 16, blood pressure of 140/60, pulse ox of 99% on room air. CONSTITUTIONAL: She is in no apparent distress. She appears well nourished. EYES: Pupils are equal, round, and reactive to light and accommodation. Her sclerae are anicteric. EARS NOSE MOUTH AND THROAT: She has somewhat dry mucous membranes but no oral lesions. CARDIOVASCULAR: She has regular rate and rhythm. She has a diastolic murmur. She has no edema. RESPIRATORY: She has no rales or rhonchi. Her lungs are clear to auscultation with good respiratory effort. GASTROINTESTINAL: She has normoactive bowel sounds. She has a soft, nontender abdomen without distention, rebound, or guarding. GENITOURINARY: She has no lower pelvis discomfort with palpation. SKIN: Warm and dry. Slightly pale, but no evidence of jaundice or bruising. MUSCULOSKELETAL: She has no muscle tenderness. NEUROLOGIC: Her cranial nerves are grossly intact. PSYCHIATRIC: She is interacting appropriately. She has no evidence of anxiety or depression. LABORATORY TESTING: White count of 4.06, hemoglobin of 9.4, hematocrit of 28.9. Sodium of 138, potassium of 3.3, chloride of 105, bicarb of 23, BUN of 10 , creatinine of 0.4. On the day prior to admission, her hemoglobin was 7.2 with a hematocrit of 22.9. IMPRESSION/RECOMMENDATIONS: I suspect that the patient is having ongoing bleeding from her duodenal lesion. At its diagnosis in July, it had ulceration and friable appearance. It has likely only progressed during the last 3 months. This may be why she is having increasing difficulty as an outpatient managing her iron stores and blood counts. At this point, I do not recommend any additional iron workup. Furthermore, in the absence of overt bleeding, I do not recommend endoscopic evaluation for potential therapy related to bleeding. Endoscopic evaluation has some risk given this patient's age and comorbidities. Furthermore, it is unlikely to make a discovery that will change her overall management strategy. Lastly, endoscopic therapy for bleeding from malignancy is typically ineffective. At this point, I recommend she is able to advance her diet. We should continue to monitor her iron and blood counts. She will likely need periodic blood transfusions, aggressive outpatient iron supplementation, and frequent monitoring of her blood counts. Regrettably, I fear there is unlikely to be any useful endoscopic management strategy for her ongoing malignancy-related blood losses. /[id number]/MODL MTDD
[2016-10-30] MEDS: HYDROCHLOROTHIAZIDE 25 MG TAB PO SCH (11:11)
[2016-10-30] MEDS: Tretinoin [Retin-A] 1 APP TP SCH (11:12)
--- NOTE | 2016-10-30 13:26 | HOSPPROG ---
Hospitalist Progress Note Assessment/Plan: 81 yo F with PMH of adenocarcinoma of ampulla of Vater and chronic iron deficiency anemia presenting with acute on chronic, symptomatic anemia # acute on chronic iron deficiency anemia- HGb 7 on presentation - receiving IV iron infusions as an outpt discussed the case with GI they are confident her losses are 2/2 underlying malignancy - no benefit to additional scoping/imaging oxygen saturations 93% on RA - s/p transfusion overnight - hgb 9 this am - recheck in am # ampullary adenocarcinoma-patient has opted for palliative management only history of biliary obstruction s/p biliary stent as well as large duodenal mass, high risk for bowel obstruction- LFTs wnl. - palliative care # Atrial fibrillation- with PPM in place- EKG (personally reviewed and interpreted) V-paced without acute changes - no aspirin or anticoagulation secondary to chronic GI bleed - continue HS verapamil # diastolic heart failure, chronic- with relatively preserved EF of 55%, no e/o decompensation currently # h/o PE- patient has declined AC in the past, not symptomatic # VHD: with hx of rheumatic heart disease and s/p MVR, last echo in 06/2016 showing normally functioning valve # DNR # dispo - > 2MN as patient requires additional monitoring of her CBC prior to dc home - anticipate tomorrow is H&H stays stable overnight I have discussed the case with Dr. Mabry - we will not do EGD or colonoscopy today - transfuse and supportive care Subjective: feels very fatigued Objective: Vital Signs Temp Pulse Resp BP Pulse Ox 36.9 C 70 16 127/57 H 93 10/30/16 09:57 10/30/16 09:57 10/30/16 09:57 10/30/16 10:30 10/30/16 09:57 Laboratory Results 10/30/16 04:37 10/30/16 04:37 10/29/16 10/30/16 10/31/16 05:59 05:59 05:59 Intake Total 1375 Output Total 650 Balance 725 - Physical Exam Constitutional: chronically ill appearing, cachectic Eyes: anicteric sclera Ears, Nose, Mouth, Throat: moist mucous membranes Cardiovascular: regular rate and rhythym Respiratory: no respiratory distress, no rales or rhonchi Gastrointestinal: normoactive bowel sounds, soft, non-tender abdomen Genitourinary: no bladder fullness Skin: warm, normal color Musculoskeletal: No asymmetric calves Neurologic: AAOx3 Psychiatric: interacting appropriately, not anxious Lymph, Heme, Immunologic: no cervical LAD ICD10 Worksheet Patient Problems: Problems Problem Status Onset Abdominal pain Acute Abnormal findings on imaging of biliary tract Acute CHF (congestive heart failure) Acute Chest wall pain Acute Dehydration Acute Generalized weakness Acute Palliative care encounter Acute Sacral fracture, closed Acute UTI (urinary tract infection) Acute Urinary tract infection Acute Vomiting Acute
[2016-10-30] MEDS ORDERED: POTASSIUM CL 20 MEQ TAB PO SCH (16:00)
[2016-10-30] MEDS: RED WINE 120 ML BOTTLE PO SCH (18:49)
[2016-10-30] MEDS: VERAPAMIL ER 120 MG TAB PO SCH (21:14)
[2016-10-30] MEDS: CLORAZEPATE 7.5 MG TAB PO SCH (21:14)
[2016-10-31 05:04] LABS: % IMMATURE GRANULYOCYTES 0.6 % (0.0-1.1); ABSOLUTE IMMATURE GRANULOCYTES 0.03 10^3/uL (0.00-0.10); ADD DIFF? NO; ADD MORPH? NO; ADD SCAN? NO; ATYPICAL LYMPHOCYTE FLAG 30 (0-99); FRAGMENT RBC FLAG 0 (0-99); HEMATOCRIT 29.8 % (38.0-47.0); HEMOGLOBIN 9.7 g/dL (12.6-16.3); LEFT SHIFT FLG 0 (0-99); LIPEMIA HEMOLYSIS FLAG 80 (0-99); MEAN CELL HEMOGLOBIN 30.2 pg (27.9-34.1); MEAN CELL HEMOGLOBIN CONCENTR. 32.6 g/dL (32.4-36.7); MEAN CELL VOLUME 92.8 fL (81.5-99.8); MEAN PLATELET VOLUME 9.2 fL (8.7-11.7); PLATELET CLUMPS FLAG 20 (0-99); PLATELET COUNT 301 10^3/uL (150-400); RED BLOOD CELL COUNT 3.21 10^6/uL (4.18-5.33); RED CELL DISTRIBUTION WIDTH 19.5 % (11.5-15.2)
[2016-10-31 05:17] LABS: ANION GAP 9 mEq/L (8-16); CALCIUM 9.2 mg/dL (8.5-10.4); CARBON DIOXIDE 24 mEq/l (22-31); CHLORIDE 107 mEq/L (97-110); CREATININE 0.5 mg/dL (0.6-1.0); GLOMERULAR FILTRATION RATE > 60; GLUCOSE 114 mg/dL (70-100); POTASSIUM 3.9 mEq/L (3.5-5.2); SODIUM 140 mEq/L (134-144)
[2016-10-31 05:30] VITALS: RESP 16; TEMP 97.8
[2016-10-31] MEDS: HYDROCHLOROTHIAZIDE 25 MG TAB PO SCH (08:10)
[2016-10-31 08:14] VITALS: BP 130/61; O2SAT 97
[2016-10-31] MEDS: Tretinoin [Retin-A] 1 APP TP SCH (09:47)
--- NOTE | 2016-10-31 12:08 | GDS ---
[f rep st] DISCHARGE SUMMARY DISCHARGE DIAGNOSES: 1. Anemia secondary to acute blood loss. 2. Toaxl-zi-xqiwecd iron deficiency anemia. 3. Ampullary adenocarcinoma. 4. Permanent atrial fibrillation. 5. Diastolic heart failure. 6. Valvular heart disease status post mitral valve repair. HISTORY OF PRESENT ILLNESS: An 81-year-old female with recently diagnosed ampullary adenocarcinoma with chronic GI bleeding, who presents with acute symptoms of fatigue and weakness. For details of patient's initial presentation, please see the History and Physical dated 10/26/2016. CONSULTATIVE SERVICES: Gastroenterology. PROCEDURES: None. HOSPITAL COURSE BY ISSUE: 1. Anemia secondary to acute blood loss. The patient presented with a hemoglobin of 7. Her previo us baselines were closer to 9. Gastroenterology was consulted and felt that the cause of her GI los ses is consistent with her known ampullary adenocarcinoma. In their opinion, there was no utility i n additional scoping and/or colonoscopy looking for alternate explanations or sources. The patient was transfused and has a discharge hemoglobin of 9 (at her previous baseline). It was explained to the patient that she will have ongoing losses and will need to have labs intermittently followed at [facility] for intermittent transfusions if necessary. 2. Ampullary adenocarcinoma. The patient has chosen a palliative route for her cancer treatment. She is being followed by [facility] and will continue to do so post disposition. At the time of her disch arge, she is not having significant pain requiring treatment and is tolerating a normal p.o. diet. 3. Permanent atrial fibrillation. Patient has not been on aspirin secondary to her chronic GI loss es. She is continued on her evening verapamil with good heart rate control during this hospital sta y. 4. Fatigue. Suspected multifactorial from her underlying malignancy, as well as her chronic anemia . Again, the patient was transfused. We have encouraged her to engage more support services in the home to assist her. However, at this time, she declines to do so. MEDICATIONS AT TIME OF DISCHARGE: Please reference medication reconciliation printed on 10/31/2016. PENDING STUDIES AT TIME OF DISCHARGE: None. FOLLOWUP APPOINTMENTS: Include with [facility] for laboratory checks in the next 7-10 days. TIME SPENT: I spent greater than 30 minutes in the planning and coordination of this discharge. /[id number]/MODL
[2016-10-31] MEDS ORDERED: ESTRADIOL VIVELLE 0.05 MG PATCH TD SCH (18:48)
== END 2016-10-31 12:40 | disposition home or self-care (01) | DRG 812 ==
LOC: F1N 16:16 → INTOOBSV 16:16 → EDSTATUS 16:29 → OBSVTOIN 10-30 13:52
PROVIDERS: ADMIT Internal Medicine; ATTEND Internal Medicine
PROC: 30233N1 Transfusion of Nonautologous Red Blood Cells into Peripheral Vein, Percutaneous Approach (ICD-10-PCS; principal; 2016-10-30)
DX: D62 Acute posthemorrhagic anemia (principal); D50.0 Iron deficiency anemia secondary to blood loss (chronic); C24.1 Malignant neoplasm of ampulla of Vater; I48.2 Chronic atrial fibrillation; I50.32 Chronic diastolic (congestive) heart failure; M81.0 Age-related osteoporosis without current pathological fracture; Z86.711 Personal history of pulmonary embolism; Z95.0 Presence of cardiac pacemaker; Z86.73 Personal history of transient ischemic attack (TIA), and cerebral infarction without residual deficits; Z66 Do not resuscitate
CPT/HCPCS: 97161-GP; 97165-GO; G0378; G0379; G8978-GP-CI; G8979-GP-CI; G8987-GO-CI; G8988-GO-CI; P9016

== ENCOUNTER 2016-12-27 21:53 | Inpatient (IN) | payer OTHER ==
[2016-12-27] MEDS ORDERED: HYDROmorphONE/DILAUDID 1 MG/ML SYR IVP ONE (23:04)
[2016-12-27] MEDS ORDERED: ONDANSETRON 4 MG/2 ML VIAL IVP ONE (23:04)
[2016-12-27] MEDS ORDERED: NS 1,000 ML IV ONE (23:04)
[2016-12-27] MEDS ORDERED: IOPAMIDOL (ISOVUE-300) 100 ML BTL ONE (23:09)
--- NOTE | 2016-12-27 23:09 | EDPHY ---
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 No fever. She has a history of ampullary adenocarcinoma with a stent in place as well as anemia caused by the adenocarcinoma. She was admitted in October for blood transfusions. She also has a history of cholecystectomy and appendectomy. History of permanent atrial fibrillation and mitral valve bovine replacement as well as diastolic heart failure and pacemaker placement. She denies vomiting. She denies change in bowel habits. She denies distension. She has an obvious incisional hernia in her abdomen but it is nontender an easily reducible. She is comfort care only for her adenocarcinoma. REVIEW OF SYSTEMS: Constitutional: denies: chills, fever, recent illness, recent injury EENTM: denies: blurred vision, double vision, nose congestion Respiratory: denies: cough, shortness of breath Cardiac: denies: chest pain, irregular heart rate, lightheadedness, palpitations Gastrointestinal/Abdominal: denies: abdominal pain, diarrhea, nausea, vomiting, blood streaked stools Genitourinary: denies: dysuria, frequency, hematuria, pain Musculoskeletal: denies: joint pain, muscle pain Skin: denies: lesions, rash, jaundice, bruising Neurological: denies: headache, numbness, paresthesia, tingling, dizziness, weakness Hematologic/Lymphatic: denies: blood clots, easy bleeding, easy bruising Immunologic/allergic: denies: HIV/AIDS, transplant EXAM: GENERAL: Well-appearing, well-nourished and in no acute distress. HEAD: Atraumatic, normocephalic. EYES: Pupils equal round and reactive to light, extraocular movements intact, sclera anicteric, conjunctiva are normal. ENT: TMs normal, nares patent, oropharynx clear without exudates. Moist mucous membranes. NECK: Normal range of motion, supple without lymphadenopathy or JVD. LUNGS: Breath sounds clear to auscultation bilaterally and equal. No wheezes rales or rhonchi. HEART: Regular rate and rhythm without murmurs, rubs or gallops. ABDOMEN: Soft, mildly distended, incisional hernia easily reducible, normoactive bowel sounds. No guarding, no rebound. No masses appreciated. BACK: No CVA tenderness, no spinal tenderness, step-offs or deformities EXTREMITIES: Normal range of motion, no pitting or edema. No clubbing or cyanosis. NEUROLOGICAL: Cranial nerves II through XII grossly intact. Normal speech, normal gait. 5/5 strength, normal movement in all extremities, normal sensation PSYCH: Normal mood, normal affect. SKIN: Warm, dry, normal turgor, no visible rashes or lesions. Source: Patient, Old records Exam Limitations: No limitations - Personal History Current Tetanus/Diphtheria Vaccine: Yes Current Tetanus Diphtheria and Acellular Pertussis (TDAP): Yes Tetanus Vaccine Date: < 10 years - Medical/Surgical History Hx Asthma: No Hx Chronic Respiratory Disease: No Hx Diabetes: No Hx Cardiac Disease: Yes Hx Renal Disease: No Hx Cirrhosis: No Hx Alcoholism: No Hx HIV/AIDS: No Hx Splenectomy or Spleen Trauma: No Other PMH: pacemaker, afib, CHF, HTN, MVR, FALLS, HYPOTHYROID, PE, chronic left knee pain, abdominal cancer - Family History Significant Family History: No pertinent family hx - Social History Smoking Status: Never smoked Alcohol Use: Sober Drug Use: None Constitutional: Initial Vital Signs Temperature (C) 36.5 C 12/27/16 22:00 Heart Rate 69 12/27/16 22:00 Respiratory Rate 18 12/27/16 22:00 Blood Pressure 149/61 H 12/27/16 22:00 O2 Sat (%) 96 12/27/16 22:00 O2 Delivery Mode Room Air Allergies/Adverse Reactions: diltiazem [Diltiazem] Allergy (Severe, Verified 08/23/15 00:57) Respiratory Arrest SYNVIX Allergy (Intermediate, Uncoded 08/23/15 00:57) Home Medications: Medication Instructions Recorded Clorazepate Dipotassium [Tranxene 3.75 mg PO HS 07/08/16 T-Tab (*)] Estradiol [Vivelle-Dot 0.05MG (*)] 0.05 mg TD BARFIELD 07/08/16 Herbals/Supplements -Info Only 1 ea PO DAILY 07/08/16 Hydrochlorothiazide [HCTZ (*)] 25 mg PO DAILY 07/08/16 Potassium Cl [Klor-Con 20 meq (*)] 20 meq PO DAILY@1600 07/08/16 Verapamil ER [Calan SR/ER 120MG 120 mg PO HS 07/08/16 (*)] Tretinoin [RETIN-A] 1 nikky TP DAILY 10/13/16 Medical Decision Making - Diagnostics EKG Interpretation: An EKG obtained and was read and documented in trace view. Please see trace view for full reading and report. Ventricular paced rhythm with underlying AFib , unchanged from previous Imaging Results: Imaging Impressions Abdomen CT 12/27/16 23:05 Impression: 1. Biliary stent appears patent. Pneumobilia. 2. 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 Possible mild pancreatitis in the peripancreatic head region with mild inflammatory changes. 3. Anterior pelvic and right inguinal hernias with several loops of bowel extending through the hernia defects. However no small bowel obstruction. 4. Mild constipation. 5. 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 Findings and recommendations discussed with Emergency Department physician, EMMY QUINTERO at 23:57 hour, 12/27/2016. Final report concurs with initial preliminary interpretation. Imaging: Discussed imaging studies w/ scallop binder Radiologist ED Course/Re-evaluation: The patient has pancreatitis which is new. 11:50 p.m. I discussed the case with Dr. Patel who will admit to the medical service. Differential Diagnosis: Partial list of the Differential diagnosis considered include but were not limited to; pancreatitis, obstruction, kidney stone and although unlikely based on the history and physical exam, I also considered urinary tract infection, volvulus, incarcerated hernia, aneurysm. - Data Points Laboratory Results: Laboratory Results 12/27/16 23:20 12/27/16 23:20 12/27/16 12/27/16 12/27/16 23:20 23:20 23:20 WBC 6.91 10^3/uL 10^3/uL (3.80-9.50) RBC 2.88 10^6/uL L 10^6/uL (4.18-5.33) Hgb 7.9 g/dL L g/dL (12.6-16.3) Hct 25.6 % L % (38.0-47.0) MCV 88.9 fL fL (81.5-99.8) MCH 27.4 pg L pg (27.9-34.1) MCHC 30.9 g/dL L g/dL (32.4-36.7) RDW 20.3 % H % (11.5-15.2) Plt Count 357 10^3/uL 10^3/uL (150-400) MPV 9.5 fL fL (8.7-11.7) Neut % (Auto) 71.9 % % (39.3-74.2) Lymph % (Auto) 14.3 % L % (15.0-45.0) Lucas % (Auto) 11.3 % % (4.5-13.0) Eos % (Auto) 1.2 % % (0.6-7.6) Baso % (Auto) 0.9 % % (0.3-1.7) Nucleat RBC Rel Count 0.0 % % (0.0-0.2) Absolute Neuts (auto) 4.97 10^3/uL 10^3/uL (1.70-6.50) Absolute Lymphs (auto) 0.99 10^3/uL L 10^3/uL (1.00-3.00) Absolute Monos (auto) 0.78 10^3/uL 10^3/uL (0.30-0.80) Absolute Eos (auto) 0.08 10^3/uL 10^3/uL (0.03-0.40) Absolute Basos (auto) 0.06 10^3/uL 10^3/uL (0.02-0.10) Absolute Nucleated RBC 0.00 10^3/uL 10^3/uL (0-0.01) Immature Gran % 0.4 % % (0.0-1.1) Immature Gran # 0.03 10^3/uL 10^3/uL (0.00-0.10) Platelet Estimate ADEQUATE (ADEQ) Hypochromasia 2+ H Microcytic Cells 1+ H Elliptocytes 1+ H PT 15.7 SEC H SEC (12.0-15.0) INR 1.25 H (0.83-1.16) APTT 32.2 SEC SEC (23.0-38.0) VBG Lactic Acid Sodium 140 mEq/L mEq/L (134-144) Potassium 4.0 mEq/L mEq/L (3.5-5.2) Chloride 108 mEq/L mEq/L (97-110) Carbon Dioxide 23 mEq/l mEq/l (22-31) Anion Gap 9 mEq/L mEq/L (8-16) BUN 12 mg/dL mg/dL (7-23) Creatinine 0.5 mg/dL L mg/dL (0.6-1.0) Estimated GFR > 60 Glucose 116 mg/dL H mg/dL (70-100) Calcium 9.2 mg/dL mg/dL (8.5-10.4) Total Bilirubin 0.4 mg/dL mg/dL (0.1-1.4) Conjugated Bilirubin 0.2 mg/dL mg/dL (0.0-0.5) Unconjugated Bilirubin 0.2 mg/dL mg/dL (0.0-1.1) AST 23 IU/L IU/L (14-46) ALT 28 IU/L IU/L (9-52) Alkaline Phosphatase 79 IU/L IU/L (38-126) Total Protein 6.3 g/dL g/dL (6.3-8.2) Albumin 3.4 g/dL L g/dL (3.5-5.0) Lipase 818.0 IU/L H IU/L (23-300) 12/27/16 23:20 WBC RBC Hgb Hct MCV MCH MCHC RDW Plt Count MPV Neut % (Auto) Lymph % (Auto) Lucas % (Auto) Eos % (Auto) Baso % (Auto) Nucleat RBC Rel Count Absolute Neuts (auto) Absolute Lymphs (auto) Absolute Monos (auto) Absolute Eos (auto) Absolute Basos (auto) Absolute Nucleated RBC Immature Gran % Immature Gran # Platelet Estimate Hypochromasia Microcytic Cells Elliptocytes PT INR APTT VBG Lactic Acid 1.1 mmol/L mmol/L (0.7-2.1) Sodium Potassium Chloride Carbon Dioxide Anion Gap BUN Creatinine Estimated GFR Glucose Calcium Total Bilirubin Conjugated Bilirubin Unconjugated Bilirubin AST ALT Alkaline Phosphatase Total Protein Albumin Lipase Medications Given: Discontinued Medications Hydromorphone HCl (Dilaudid) 0.5 mg IVP EDNOW ONE Stop: 12/27/16 23:05 Last Admin: 12/28/16 00:13 Dose: Not Given Sodium Chloride (Ns) 1,000 mls @ 0 mls/hr IV ONCE ONE PRN Reason: Wide Open Stop: 12/27/16 23:05 Last Admin: 12/28/16 00:13 Dose: 1,000 mls Ondansetron HCl (Zofran) 4 mg IVP EDNOW ONE Stop: 12/27/16 23:05 Last Admin: 12/28/16 00:13 Dose: Not Given Departure - Departure Disposition: [facility] Inpatient Acute Clinical Impression: Pancreatitis Qualifiers: Chronicity: acute Pancreatitis type: other Acute pancreatitis complication: unspecified Qualified Code(s): K85.80 - Other acute pancreatitis without necrosis or infection Condition: Fair
[2016-12-27 23:40] LABS: % IMMATURE GRANULYOCYTES 0.4 % (0.0-1.1); ABSOLUTE IMMATURE GRANULOCYTES 0.03 10^3/uL (0.00-0.10); ADD DIFF? NO; ADD MORPH? YES; ADD SCAN? NO; ATYPICAL LYMPHOCYTE FLAG 20 (0-99); FRAGMENT RBC FLAG 0 (0-99); HEMATOCRIT 25.6 % (38.0-47.0); HEMOGLOBIN 7.9 g/dL (12.6-16.3); LEFT SHIFT FLG 0 (0-99); LIPEMIA HEMOLYSIS FLAG 80 (0-99); MEAN CELL HEMOGLOBIN 27.4 pg (27.9-34.1); MEAN CELL HEMOGLOBIN CONCENTR. 30.9 g/dL (32.4-36.7); MEAN CELL VOLUME 88.9 fL (81.5-99.8); MEAN PLATELET VOLUME 9.5 fL (8.7-11.7); PLATELET CLUMPS FLAG 0 (0-99); PLATELET COUNT 357 10^3/uL (150-400); RED BLOOD CELL COUNT 2.88 10^6/uL (4.18-5.33)
[2016-12-27 23:42] LABS: INR 1.25 (0.83-1.16); PROTIME(PATIENT) 15.7 SEC (12.0-15.0); RED CELL DISTRIBUTION WIDTH 20.3 % (11.5-15.2)
[2016-12-27 23:43] LABS: APTT 32.2 SEC (23.0-38.0)
[2016-12-27 23:48] LABS: ALANINE AMINOTRANSFERASE 28 IU/L (9-52); ALBUMIN 3.4 g/dL (3.5-5.0); ALKALINE PHOSPHATASE 79 IU/L (38-126); ANION GAP 9 mEq/L (8-16); ASPARTATE AMINOTRANSFERASE 23 IU/L (14-46); BILIRUBIN,TOTAL 0.4 mg/dL (0.1-1.4); BILIRUBIN-CONJUGATED 0.2 mg/dL (0.0-0.5); BILIRUBIN-UNCONJUGATED 0.2 mg/dL (0.0-1.1); CALCIUM 9.2 mg/dL (8.5-10.4); CARBON DIOXIDE 23 mEq/l (22-31); CHLORIDE 108 mEq/L (97-110); CREATININE 0.5 mg/dL (0.6-1.0); GLOMERULAR FILTRATION RATE > 60; GLUCOSE 116 mg/dL (70-100); SODIUM 140 mEq/L (134-144); TOTAL PROTEIN 6.3 g/dL (6.3-8.2)
--- NOTE | 2016-12-28 00:18 | CPEKG ---
Heart Rate: 70 RR Interval: 857 P-R Interval: 193 QRSD Interval: 122 QT Interval: 492 QTC Interval: 531 P Comstock: 0 QRS Comstock: 129 T Wave Comstock: 0 EKG Severity - ABNORMAL ECG - EKG Impression: VENTRICULAR-PACED RHYTHM EKG Impression: Unchanged from previous Electronically Signed By: Joey Simmons 28-Dec-2016 00:19:21
[2016-12-28 00:28] LABS: ELLIPTOCYTES 1+; HYPOCHROMIA 2+; MICROCYTES 1+; PLATELET ESTIMATE ADEQUATE (ADEQ)
[2016-12-28] MEDS ORDERED: oxyCODONE IR 5 MG TAB PO PRN (00:44)
[2016-12-28] MEDS ORDERED: ACETAMINOPHEN 500 MG TAB PO PRN (00:44)
[2016-12-28] MEDS ORDERED: ONDANSETRON 4 MG/2 ML VIAL IVP PRN (00:44)
[2016-12-28] MEDS ORDERED: ONDANSETRON DISINTEGRATING 4 MG TAB PO PRN (00:44)
[2016-12-28 01:41] LABS: COLOR YELLOW; LEUKOCYTE ESTERASE,URINE NEGATIVE (NEGATIVE); NITRITE,URINE NEGATIVE (NEGATIVE)
[2016-12-28 02:01] LABS: BACTERIA 2+ /hpf (NONE SEEN); MUCUS 1+ /lpf (NONE-1+); YEAST PRESENT /hpf (NONE SEEN)
[2016-12-28 02:02] LABS: RBC,URINE NONE SEEN /hpf (0-3)
[2016-12-28] MEDS: NS 1,000 ML IV SCH ×2 (02:20→13:55)
[2016-12-28 05:00] LABS: % IMMATURE GRANULYOCYTES 0.2 % (0.0-1.1); ABSOLUTE IMMATURE GRANULOCYTES 0.01 10^3/uL (0.00-0.10); ADD DIFF? NO; ADD MORPH? YES; ADD SCAN? NO; ATYPICAL LYMPHOCYTE FLAG 0 (0-99); FRAGMENT RBC FLAG 10 (0-99); HEMATOCRIT 24.2 % (38.0-47.0); HEMOGLOBIN 7.4 g/dL (12.6-16.3); LEFT SHIFT FLG 0 (0-99); LIPEMIA HEMOLYSIS FLAG 80 (0-99); MEAN CELL HEMOGLOBIN 27.3 pg (27.9-34.1); MEAN CELL HEMOGLOBIN CONCENTR. 30.6 g/dL (32.4-36.7); MEAN CELL VOLUME 89.3 fL (81.5-99.8); MEAN PLATELET VOLUME 9.7 fL (8.7-11.7); PLATELET CLUMPS FLAG 0 (0-99); PLATELET COUNT 339 10^3/uL (150-400); RED BLOOD CELL COUNT 2.71 10^6/uL (4.18-5.33)
[2016-12-28 05:02] LABS: RED CELL DISTRIBUTION WIDTH 20.2 % (11.5-15.2)
[2016-12-28 05:11] LABS: INR 1.28 (0.83-1.16)
[2016-12-28 05:12] LABS: APTT 32.9 SEC (23.0-38.0)
[2016-12-28 05:15] LABS: ALANINE AMINOTRANSFERASE 25 IU/L (9-52); ALBUMIN 2.9 g/dL (3.5-5.0); ALKALINE PHOSPHATASE 75 IU/L (38-126); ANION GAP 7 mEq/L (8-16); ASPARTATE AMINOTRANSFERASE 18 IU/L (14-46); BILIRUBIN,TOTAL 0.3 mg/dL (0.1-1.4); CALCIUM 8.5 mg/dL (8.5-10.4); CARBON DIOXIDE 23 mEq/l (22-31); CHLORIDE 109 mEq/L (97-110); CREATININE 0.5 mg/dL (0.6-1.0); GLOMERULAR FILTRATION RATE > 60; GLUCOSE 105 mg/dL (70-100); MAGNESIUM 1.8 mg/dL (1.6-2.3); POTASSIUM 3.9 mEq/L (3.5-5.2); SODIUM 139 mEq/L (134-144); TOTAL PROTEIN 5.7 g/dL (6.3-8.2)
[2016-12-28 05:31] LABS: MICROCYTES 2+; PLATELET ESTIMATE ADEQUATE (ADEQ)
--- NOTE | 2016-12-28 05:59 | PDGENHP ---
History and Physical - Chief Complaint abdominal pain - History of Present Illness Patient is an 81 year old female with ampullary adenocarcinoma, complicated by biliary obstruction s/p stenting and chronic anemia with regular IV iron infusions, Som[facility] admission for blood transfusion. She also has a history of diastolic CHF, atrial fibrillation, bovine mitral valve replacement and today presents to the ED with acute onset abdominal pain. Patient states she was in the middle of eating dinner when she sudden felt sharp, intense epigastric and LUQ pain that radiated band-like across her abdomen. There was no associated nausea, vomiting or diarrhea. Given the severity of the pain, she decided to come to the ED for further evaluation. On arrival to the ED, patient was afebrile and hemodynamically stable. Labs revealed no leukocytosis, elevated lipase and normal LFTs. CT abd/pelvis was then obtained and revealed previous ampullary mass, with apparently patent biliary stent, with pneumobilia. Patient was then admitted for presumed acute pancreatitis. History Information - Allergies/Home Medication List Allergies/Adverse Reactions: diltiazem [Diltiazem] Allergy (Severe, Verified 08/23/15 00:57) Respiratory Arrest SYNVIX Allergy (Intermediate, Uncoded 08/23/15 00:57) Home Medications: Clorazepate Dipotassium [Tranxene T-Tab (*)] 3.75 mg PO HS 07/08/16 [Last Taken 10/12/16] Estradiol [Vivelle-Dot 0.05MG (*)] 0.05 mg TD BARFIELD 07/08/16 [Last Taken 10/12/16] Herbals/Supplements -Info Only 1 ea PO DAILY 07/08/16 [Last Taken 10/12/16] Hydrochlorothiazide [HCTZ (*)] 25 mg PO DAILY 07/08/16 [Last Taken 10/29/16] Potassium Cl [Klor-Con 20 meq (*)] 20 meq PO DAILY@1600 07/08/16 [Last Taken 01/08] Verapamil ER [Calan SR/ER 120MG (*)] 120 mg PO HS 07/08/16 [Last Taken 10/28/16 ] Tretinoin [RETIN-A] 1 nikky TP DAILY 10/13/16 [Last Taken 10/12/16] I have personally reviewed and updated: family history, medical history, social history, surgical history - Past Medical History atrial fibrillation, cancer (adenocarcinoma of ampulla of vater), pulmonary embolism, TIA Additional medical history: Atrial fibrillation s/p PPM. Pulmonary embolism. osteoporosis. Diastolic CHF. Rheumatic heart disease S/P bovine mitral valve replacement - Surgical History Additional surgical history: Tonsillectomy. Hysterectomy. Mitral valve repair. Appendectomy. Cholecystectomy. 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 Has a son in [place], [place] Review of Systems ROS: 10pt was reviewed & negative except for what was stated in HPI & below Physical Exam Temp Pulse Resp BP Pulse Ox 36.6 C 70 15 122/50 H 96 12/28/16 04:00 12/28/16 04:00 12/28/16 04:00 12/28/16 04:00 12/28/16 04:00 Constitutional: no apparent distress, appears nourished, not in pain Eyes: PERRL, anicteric sclera, EOMI Ears, Nose, Mouth, Throat: moist mucous membranes, hearing normal, ears appear normal, no oral mucosal ulcers Cardiovascular: regular rate and rhythym, no murmur, rub, or gallop, pulses symmetric bilaterally, edema (b/l pedal edema), No JVD Peripheral Pulses: 2+: dorsalis-pedis (R), dorsalis-pedis (L) Respiratory: no respiratory distress, no rales or rhonchi, clear to auscultation Gastrointestinal: normoactive bowel sounds, no palpable masses, tenderness ( diffusely tender, lorenzo in upper quadrants), No hepatosplenomegally, No guarding, No rebound Genitourinary: no bladder fullness, no bladder tenderness Skin: warm, normal color, no rashes or abrasions, no fluctuance, no induration, No mottled Musculoskeletal: full muscle strength, no muscle tenderness, normal joint ROM, no joint effusions Neurologic: AAOx3, sensation intact bilaterally, CN II-XII Intact, No weakness, No numbness, No facial droop Psychiatric: interacting appropriately, not anxious, not encephalopathic, thought process linear Lab Data & Imaging Review 12/28/16 04:14 12/28/16 04:14 WBC 5.61 10^3/uL (3.80-9.50) 12/28/16 04:14 RBC 2.71 10^6/uL (4.18-5.33) L 12/28/16 04:14 Hgb 7.4 g/dL (12.6-16.3) L 12/28/16 04:14 Hct 24.2 % (38.0-47.0) L 12/28/16 04:14 MCV 89.3 fL (81.5-99.8) 12/28/16 04:14 MCH 27.3 pg (27.9-34.1) L 12/28/16 04:14 MCHC 30.6 g/dL (32.4-36.7) L 12/28/16 04:14 RDW 20.2 % (11.5-15.2) H 12/28/16 04:14 Plt Count 339 10^3/uL (150-400) 12/28/16 04:14 MPV 9.7 fL (8.7-11.7) 12/28/16 04:14 Neut % (Auto) 69.6 % (39.3-74.2) 12/28/16 04:14 Lymph % (Auto) 15.7 % (15.0-45.0) 12/28/16 04:14 [place] % (Auto) 11.2 % (4.5-13.0) 12/28/16 04:14 Eos % (Auto) 2.1 % (0.6-7.6) 12/28/16 04:14 Baso % (Auto) 1.2 % (0.3-1.7) 12/28/16 04:14 Nucleat RBC Rel Count 0.0 % (0.0-0.2) 12/28/16 04:14 Absolute Neuts (auto) 3.90 10^3/uL (1.70-6.50) 12/28/16 04:14 Absolute Lymphs (auto) 0.88 10^3/uL (1.00-3.00) L 12/28/16 04:14 Absolute Monos (auto) 0.63 10^3/uL (0.30-0.80) 12/28/16 04:14 Absolute Eos (auto) 0.12 10^3/uL (0.03-0.40) 12/28/16 04:14 Absolute Basos (auto) 0.07 10^3/uL (0.02-0.10) 12/28/16 04:14 Absolute Nucleated RBC 0.00 10^3/uL (0-0.01) 12/28/16 04:14 Immature Gran % 0.2 % (0.0-1.1) 12/28/16 04:14 Immature Gran # 0.01 10^3/uL (0.00-0.10) 12/28/16 04:14 Platelet Estimate ADEQUATE (ADEQ) 12/28/16 04:14 Hypochromasia 2+ H 12/27/16 23:20 Microcytic Cells 2+ H 12/28/16 04:14 Elliptocytes 1+ H 12/27/16 23:20 PT 16.0 SEC (12.0-15.0) H 12/28/16 04:14 INR 1.28 (0.83-1.16) H 12/28/16 04:14 APTT 32.9 SEC (23.0-38.0) 12/28/16 04:14 VBG Lactic Acid 1.1 mmol/L (0.7-2.1) 12/27/16 23:20 Sodium 139 mEq/L (134-144) 12/28/16 04:14 Potassium 3.9 mEq/L (3.5-5.2) 12/28/16 04:14 Chloride 109 mEq/L (97-110) 12/28/16 04:14 Carbon Dioxide 23 mEq/l (22-31) 12/28/16 04:14 Anion Gap 7 mEq/L (8-16) L 12/28/16 04:14 BUN 11 mg/dL (7-23) 12/28/16 04:14 Creatinine 0.5 mg/dL (0.6-1.0) L 12/28/16 04:14 Estimated GFR > 60 12/28/16 04:14 Glucose 105 mg/dL (70-100) H 12/28/16 04:14 Calcium 8.5 mg/dL (8.5-10.4) 12/28/16 04:14 Magnesium 1.8 mg/dL (1.6-2.3) 12/28/16 04:14 Total Bilirubin 0.3 mg/dL (0.1-1.4) 12/28/16 04:14 Conjugated Bilirubin 0.2 mg/dL (0.0-0.5) 12/27/16 23:20 Unconjugated Bilirubin 0.2 mg/dL (0.0-1.1) 12/27/16 23:20 AST 18 IU/L (14-46) 12/28/16 04:14 ALT 25 IU/L (9-52) 12/28/16 04:14 Alkaline Phosphatase 75 IU/L (38-126) 12/28/16 04:14 Total Protein 5.7 g/dL (6.3-8.2) L 12/28/16 04:14 Albumin 2.9 g/dL (3.5-5.0) L 12/28/16 04:14 Lipase 818.0 IU/L (23-300) H 12/27/16 23:20 Urine Color YELLOW 12/28/16 01:32 Urine Appearance HAZY 12/28/16 01:32 Urine pH 5.0 (5.0-7.5) 12/28/16 01:32 Ur Specific [place] > 1.035 (1.002-1.030) H 12/28/16 01:32 Urine Protein NEGATIVE (NEGATIVE) 12/28/16 01:32 Urine Ketones NEGATIVE (NEGATIVE) 12/28/16 01:32 Urine Blood NEGATIVE (NEGATIVE) 12/28/16 01:32 Urine Nitrate NEGATIVE (NEGATIVE) 12/28/16 01:32 Urine Bilirubin NEGATIVE (NEGATIVE) 12/28/16 01:32 Urine Urobilinogen NEGATIVE EU (0.2-1.0) 12/28/16 01:32 Ur Leukocyte Esterase NEGATIVE (NEGATIVE) 12/28/16 01:32 Urine RBC NONE SEEN /hpf (0-3) 12/28/16 01:32 Urine WBC 1-3 /hpf (0-3) 12/28/16 01:32 Ur Epithelial Cells 1+ /lpf (NONE-1+) 12/28/16 01:32 Urine Bacteria 2+ /hpf (NONE SEEN) H 12/28/16 01:32 Urine Mucus 1+ /lpf (NONE-1+) 12/28/16 01:32 Urine Yeast PRESENT /hpf (NONE SEEN) 12/28/16 01:32 Urine Glucose NEGATIVE (NEGATIVE) 12/28/16 01:32 Visualized and Interpreted imaging results: Yes Interpretation: CT abd/pelvis: biliary stents appear patent, pancreatic head mass largely unchanged, pneumobilia present and evidence of mild pancreatitis Visualized and Interpreted EKG results: Yes EKG additional interpertation: v-paced rhythm Assessment & Plan Assessment: Patient is an 81 year old female with ampullary carcinoma that had been complicated by biliary obstruction, s/p biliary stent placement, as well as chronic anemia, diastolic CHF, who presents to the ED with complaint of acute onset abdominal pain. ED evaluation reveals elevated lipase, consistent with acute pancreatitis. Plan: # acute pancreatitis Patient's description of her symptoms, as well as the elevated lipase and CT findings, are consistent with acute pancreatitis. Etiology is not clear at this time, as patient is s/p cholecystectomy, and CT read indicates biliary stents are patent, with pneumobilia present (which is likely related to ampullary mass) . Will consult IR to further evaluate patency of biliary stent, which was placed in 06/2016. Will also treat pancreatitis with gentle IVF hydration, bowel rest and pain meds as needed. # chronic normocytic anemia H/H is below previous baseline levels, but not to level of transfusion requirement. Patient denies any evidence of bleeding, likely related to her chronic illness. Will continue to monitor and transfuse as needed. # diastolic CHF, bovine mitral valve Patient with chronic lower extremity edema, but otherwise appears compensated; euvolemic, lungs clear. Will give gentle IVF hydration for above problem, monitor volume status closely. Will also confirm and continue home med regimen. # atrial fibrillation, ppm V-paced rhythm on EKG. Will need to confirm home meds and continue. Patient not on systemic AC due to chronic anemia. # dispo: admit to inpatient service for likely > 2 [place] stay # gen: NPO DVT ppx: lovenox DNR
[2016-12-28] MEDS ORDERED: HYDROmorphONE/DILAUDID 2 MG/ML INJ IVP PRN (06:18)
[2016-12-28] MEDS: ENOXAPARIN 40 MG/0.4 ML SYR SC SCH (08:21)
--- NOTE | 2016-12-28 13:01 | HOSPPROG ---
Hospitalist Progress Note Assessment/Plan: DIAGNOSES: -acute pancreatitis of uncertain etiology -history of ampullary carcinoma with biliary obstruction, with stent in place; CT scan on December 27 suggests patency of the stent -anemia PLANS: -continue IV hydration and NPO for the moment -will go to Interventional Radiology today for further assessment of her stent positioning and function -further planning for duration of NPO and other measures after interventional radiology -will review her case with Dr. Kumari or her rounding partner from Oncology, in particular regarding blood count goals in terms of further transfusion (the highest hemoglobin I can see since October is at 8.8) SUBJECTIVE: Feel somewhat better with less pain and actually feels like she has some appetite at present No nausea No fever No dyspnea OBJECTIVE Vitals reviewed: Stable without fever Exam: alert oriented skin warm dry color ok resps not labored lungs clear BSs heart regular abd soft nondistended with some epigastric tenderness but no rebound, bowel sounds present limbs warm, no edema iv site ok Laboratory data: Hemoglobin lower today at 7.4 Triglycerides normal at 56 Liver enzymes bilirubin and basic met panel stable Objective: Vital Signs Temp Pulse Resp BP Pulse Ox 36.1 C 70 18 151/65 H 94 12/28/16 12:07 12/28/16 12:07 12/28/16 12:07 12/28/16 12:07 12/28/16 12:07 Laboratory Results 12/28/16 04:14 12/28/16 04:14 12/27/16 12/28/16 12/29/16 06:59 06:59 06:59 Intake Total 600 Output Total 650 Balance -50 PT 16.0 SEC (12.0-15.0) H 12/28/16 04:14 INR 1.28 (0.83-1.16) H 12/28/16 04:14 - Time Spent With Patient Time Spent with Patient: greater than 35 minutes Time Spent with Patient: Greater than 35 minutes spent on this patients care, greater than 50% of time spent counseling, educating, and coordinating care regarding the above mentioned plan. ICD10 Worksheet Patient Problems: Problems Problem Status Onset Pancreatitis Acute Abdominal pain Acute Abnormal findings on imaging of biliary tract Acute CHF (congestive heart failure) Acute Chest wall pain Acute Dehydration Acute Generalized weakness Acute Palliative care encounter Acute Sacral fracture, closed Acute UTI (urinary tract infection) Acute Urinary tract infection Acute Vomiting Acute
[2016-12-28] MEDS: oxyCODONE IR 5 MG TAB PO PRN ×2 (20:14→23:20)
[2016-12-29] MEDS: ENOXAPARIN 40 MG/0.4 ML SYR SC SCH ×2 (09:28→09:29)
[2016-12-29 10:18] LABS: % IMMATURE GRANULYOCYTES 0.5 % (0.0-1.1); ABSOLUTE IMMATURE GRANULOCYTES 0.03 10^3/uL (0.00-0.10); ADD DIFF? NO; ADD MORPH? YES; ADD SCAN? NO; ATYPICAL LYMPHOCYTE FLAG 0 (0-99); FRAGMENT RBC FLAG 10 (0-99); HEMATOCRIT 26.7 % (38.0-47.0); HEMOGLOBIN 8.3 g/dL (12.6-16.3); LEFT SHIFT FLG 0 (0-99); LIPEMIA HEMOLYSIS FLAG 80 (0-99); MEAN CELL HEMOGLOBIN 27.9 pg (27.9-34.1); MEAN CELL HEMOGLOBIN CONCENTR. 31.1 g/dL (32.4-36.7); MEAN CELL VOLUME 89.9 fL (81.5-99.8); MEAN PLATELET VOLUME 9.4 fL (8.7-11.7); PLATELET CLUMPS FLAG 10 (0-99); PLATELET COUNT 329 10^3/uL (150-400); RED BLOOD CELL COUNT 2.97 10^6/uL (4.18-5.33)
--- NOTE | 2016-12-29 10:21 | HOSPPROG ---
Hospitalist Progress Note Assessment/Plan: DIAGNOSES: -acute pancreatitis of uncertain etiology -history of ampullary carcinoma with biliary obstruction, with stent in place; CT scan on December 27 suggests patency of the stent -anemia acute worsening with hx chronic anemia, chronic iron deficiency, hx of ongoing IV iron dosing and intermittent transfusions PLANS: -will begin trial of po clear liquids today and follow response -will review her case w oncology sponge diver, re her tumor, ? if tumor could be cause of her pancreatitis -will review her case with Dr. Lerma or her rounding partner from Oncology, in particular regarding blood count goals in terms of further transfusion (the highest hemoglobin I can see since October is at 8.8) SUBJECTIVE: no pain, fever, dyspnea or nausea is hungry OBJECTIVE Vitals reviewed: Stable without fever Exam: alert oriented skin warm dry color ok resps not labored lungs clear BSs heart regular abd soft nondistended with some epigastric tenderness but no rebound, bowel sounds present limbs warm, no edema iv site ok Laboratory data: Hemoglobin better today at 8.4 Triglycerides normal at [address] and did not feel that invasive approach was indicated, did not feel stent failure was likely cause of her pancreatitis Objective: Vital Signs Temp Pulse Resp BP Pulse Ox 36.7 C 70 14 133/58 H 91 L 12/29/16 07:19 12/29/16 07:19 12/29/16 07:19 12/29/16 07:19 12/29/16 07:19 Laboratory Results 12/28/16 04:14 12/28/16 12/29/16 12/30/16 06:59 06:59 06:59 Intake Total 500 1800 Output Total 650 1004 100 Balance -150 796 -100 PT 16.0 SEC (12.0-15.0) H 12/28/16 04:14 INR 1.28 (0.83-1.16) H 12/28/16 04:14 ICD10 Worksheet Patient Problems: Problems Problem Status Onset Pancreatitis Acute Abdominal pain Acute Abnormal findings on imaging of biliary tract Acute CHF (congestive heart failure) Acute Chest wall pain Acute Dehydration Acute Generalized weakness Acute Palliative care encounter Acute Sacral fracture, closed Acute UTI (urinary tract infection) Acute Urinary tract infection Acute Vomiting Acute
[2016-12-29 10:24] LABS: RED CELL DISTRIBUTION WIDTH 20.7 % (11.5-15.2)
[2016-12-29 10:52] LABS: ELLIPTOCYTES 1+; HYPOCHROMIA 1+; MICROCYTES 1+; PLATELET ESTIMATE ADEQUATE (ADEQ); POLYCHROMASIA 1+
[2016-12-29] MEDS: METHYL SALICYLATE TP SCH (18:43)
[2016-12-29] MEDS: MENTHOL TP SCH (18:43)
[2016-12-29] MEDS: oxyCODONE IR 5 MG TAB PO PRN (20:46)
[2016-12-30 05:30] LABS: % IMMATURE GRANULYOCYTES 0.3 % (0.0-1.1); ABSOLUTE IMMATURE GRANULOCYTES 0.02 10^3/uL (0.00-0.10); ADD DIFF? NO; ADD MORPH? YES; ADD SCAN? NO; ATYPICAL LYMPHOCYTE FLAG 40 (0-99); FRAGMENT RBC FLAG 0 (0-99); HEMATOCRIT 27.1 % (38.0-47.0); HEMOGLOBIN 8.5 g/dL (12.6-16.3); LEFT SHIFT FLG 0 (0-99); LIPEMIA HEMOLYSIS FLAG 80 (0-99); MEAN CELL HEMOGLOBIN 27.7 pg (27.9-34.1); MEAN CELL HEMOGLOBIN CONCENTR. 31.4 g/dL (32.4-36.7); MEAN CELL VOLUME 88.3 fL (81.5-99.8); MEAN PLATELET VOLUME 9.8 fL (8.7-11.7); PLATELET CLUMPS FLAG 0 (0-99); PLATELET COUNT 345 10^3/uL (150-400); RED BLOOD CELL COUNT 3.07 10^6/uL (4.18-5.33)
[2016-12-30 05:33] LABS: ANION GAP 9 mEq/L (8-16); CALCIUM 8.5 mg/dL (8.5-10.4); CARBON DIOXIDE 19 mEq/l (22-31); CHLORIDE 109 mEq/L (97-110); CREATININE 0.4 mg/dL (0.6-1.0); GLOMERULAR FILTRATION RATE > 60; GLUCOSE 90 mg/dL (70-100); POTASSIUM 3.7 mEq/L (3.5-5.2); SODIUM 137 mEq/L (134-144)
[2016-12-30 06:00] LABS: RED CELL DISTRIBUTION WIDTH 20.6 % (11.5-15.2)
[2016-12-30 07:42] LABS: MACROCYTES 1+; MICROCYTES 1+; PLATELET ESTIMATE ADEQUATE (ADEQ)
[2016-12-30] MEDS: oxyCODONE IR 5 MG TAB PO PRN ×2 (08:48→21:50)
[2016-12-30] MEDS: MENTHOL TP SCH (08:54)
[2016-12-30] MEDS: METHYL SALICYLATE TP SCH (08:54)
[2016-12-30] MEDS: ENOXAPARIN 40 MG/0.4 ML SYR SC SCH (08:54)
--- NOTE | 2016-12-30 10:50 | GCON ---
[f rep st] CONSULTATION ONCOLOGY CONSULTATION REASON FOR CONSULTATION: 1. Locally advanced ampullary/duodenal adenocarcinoma. 2. Pancreatitis. RECOMMENDATIONS: 1. Best supportive care. The patient has strong preferences on how she wants to be cared for. She is not interested in additional testing for disclosure of whether she has widely metastatic disease since she is not interested in any systemic treatment. 2. The acute pancreatitis is probably a sequelae of the local progression of the ampullary cancer e rosenda though the measurements on the scan are roughly comparable. She has regional periampullary lymp hadenopathy as well, but there is no evidence of any gross liver metastases. There is mention of she ne metastases, but I am somewhat skeptical that she has bone metastases, but I did disclose to her t he report and gave her copy and did not recommend any additional evaluation. She cannot have an MRI , and I did not think a bone scan would be all that helpful because of the severe degenerative disea se. Overall, I think she wants to go home and will follow up either in person or over the phone with Dr. Lerma. She has been introduced to the subject of hospice care, but she and her son "feel that she is not ready for that yet," but she probably is going to need some additional home care, maybe with a self-pay agency like [facility] which can provide some additional services in the home such as helping her walk, groceries, and activities of daily living. EXECUTIVE SUMMARY: The patient is a pretty sharp 81-year-old woman who was diagnosed in July 13 with an adenocarcinoma of the ampulla/duodenum. It obstructed her bile duct, and she had a percu taneous transhepatic biliary drainage stent and ultimately was internalized, and she has had that si nce then, and it is still patent with air into the bile ducts and the liver. You can see the tumor is not occluding the stent; however, she does have pancreatic ductal obstruction which is a little b it worse, and that is probably due to the tumor and possibly the stent. I talked to Dr. Carroll. There is really not a lot we can do about that, and taking the stent out is probably not worth it at this point. The patient is actually somewhat comfortable, and she has strong preferences on how she wan ts to be cared for. She would rather be at home at this point and not here in the hospital. She do es not want to take any pain medicine because she does not think she needs it, and it clouds her sen sorium, but I did application counselor her on how pancreatitis is usually managed. She does not think though trish t drinking fluids alone is in her best interest, although I talked to her about the idea of letting the pancreas rest, but she thinks she can manage this just as well as home, and again she is not mame dy for hospice. Her son is a passenger service manager and a professor out east at [employer], and she says he agrees with her decision -making. The patient does not have any immediate family, and that is obviously of concern. PAST MEDICAL HISTORY: Really remarkable for long-standing coronary artery disease. She has atrial fibrillation. She has a pacemaker. She had a remote history of pulmonary emboli, rheumatic heart d isease. She has a bovine mitral valve replacement along with diastolic heart failure, hypothyroidis m, osteoporosis. Her performance status right now is around 80 though. PAST SURGICAL HISTORY: Tonsillectomy, hysterectomy, mitral valve replacement, appendectomy, cholecy stectomy, abdominal hernia repair, pacemaker, ACL repair on the left, and a cystocele and rectocele repair. FAMILY HISTORY: Reveals her father at 71 of stomach cancer. She has 10 siblings. A brother a nd sister had some sort of cancer which she does not know about. SOCIAL HISTORY: Reveals she lives by herself out in [place]. She has 2 children, a daughter who is estranged and a son is a professor at [employer] and a hospice registered nurse. She is a nonsmoker and n ondrinker. PHYSICAL EXAMINATION: GENERAL: Reveals that her weight is relatively stable. The weight in the of [facility] was about 116. The weight here in the hospital is not recorded. HEENT: The patient has no sc leral icterus. LYMPHATIC: No cervical or supraclavicular adenopathy. LUNGS: Clear to P and A. I should note that she is cachectic. CV: She has an irregularly irregular rhythm and a grade 2/6 ho losystolic murmur. ABDOMEN: Soft, nontender, and I do not detect any masses at this time. EXTREMI TIES: There is no extremity edema or calf tenderness although she has extremity wasting. LABORATORY: Database shows that her hemoglobin is about 8.5, white counts 5.9, platelets 345. As f ar as her liver chemistries are concerned, her albumin is 2.9. Her lipase on admission was 818, whi ch is not too high, and her bilirubin was 0.4. ASSESSMENT: Locally advanced ampullary/duodenal adenocarcinoma with evidence of obstructive pancrea titis. Best care at this point is best supportive care. Please see executive summary. /[id number]/MODL
--- NOTE | 2016-12-30 17:45 | HOSPPROG ---
Hospitalist Progress Note Assessment/Plan: DIAGNOSES: -acute pancreatitis of uncertain etiology -history of ampullary carcinoma with biliary obstruction, with stent in place; CT scan on December 27 suggests patency of the stent -anemia acute worsening with hx chronic anemia, chronic iron deficiency, hx of ongoing IV iron dosing and intermittent transfusions PLANS: -Continue trial of po clear liquids today and follow response - Per my review of the CT scans with doctors Micah and Sanya it is not felt that stent is likely blocking the dilated pancreatic duct, and Dr. Obrien does not recommend any endoscopic procedures at this time. Dr. Obrien was concerned that there may be increased tumor causing pancreatic obstruction. The patient has declined any tumor directed therapies in the past. I reviewed this in detail with Dr. Kumari her primary oncologist. At this time we could consider the possibility of some palliative tumor directed therapy but Dr. Ferrari would like to talk further with radiation oncologist and other consultants before discussing that in detail with the patient. She did talk with the patient in detail today about engaging in some palliative care, however not at this time with hospice as the patient does not feel ready for hospice care. The patient is agreeable to looking at engaging in some palliative the programs otherwise. - possibly home tomorrow if doing well. SUBJECTIVE: Some minor discomfort in her abdomen after eating her for solid food today Otherwise no change in her symptoms OBJECTIVE Vitals reviewed: Stable without fever Exam: alert oriented skin warm dry color ok resps not labored lungs clear BSs heart regular abd soft nondistended with some epigastric tenderness but no rebound, bowel sounds present; Large stable mid abdominal hernia present without signs of incarceration limbs warm, no edema iv site ok I discussed the patient's case in great detail today with Dr. Patsy Lerma and Rajesh Segundo of Oncology and I also reviewed her case with Dr. Obrien of Gastroenterology. Objective: Vital Signs Temp Pulse Resp BP Pulse Ox 36.6 C 78 16 127/60 H 96 12/30/16 15:07 12/30/16 15:07 12/30/16 15:07 12/30/16 15:07 12/30/16 15:07 Laboratory Results 12/30/16 04:19 12/30/16 04:19 12/29/16 12/30/16 12/31/16 06:59 06:59 06:59 Intake Total 1800 1100 Output Total 1004 1250 100 Balance 796 -150 -100 PT 16.0 SEC (12.0-15.0) H 12/28/16 04:14 INR 1.28 (0.83-1.16) H 12/28/16 04:14 - Time Spent With Patient Time Spent with Patient: greater than 35 minutes Time Spent with Patient: Greater than 35 minutes spent on this patients care, greater than 50% of time spent counseling, educating, and coordinating care regarding the above mentioned plan. ICD10 Worksheet Patient Problems: Problems Problem Status Onset Pancreatitis Acute Abdominal pain Acute Abnormal findings on imaging of biliary tract Acute CHF (congestive heart failure) Acute Chest wall pain Acute Dehydration Acute Generalized weakness Acute Palliative care encounter Acute Sacral fracture, closed Acute UTI (urinary tract infection) Acute Urinary tract infection Acute Vomiting Acute
--- NOTE | 2016-12-31 08:40 | SOAPPROG ---
SOAP Progress Note Assessment/Plan: Assessment: 1. 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 2. Pancreatitis: bowel rest Plan: 12/31/16 08:39 12/31/16 08:40 12/31/16 09:15 Subjective: Daisha is an 81 yo F who wishes to be cared for with a minimal amount of medical intervention. See consult Objective: Vital Signs Temp Pulse Resp BP Pulse Ox 36.7 C 70 14 134/57 H 95 12/31/16 07:50 12/31/16 07:50 12/31/16 07:50 12/31/16 07:50 12/31/16 07:50 Laboratory Results 12/30/16 04:19 12/30/16 04:19 12/30/16 12/31/16 01/01/17 05:59 05:59 05:59 Intake Total 1100 550 Output Total 1250 350 Balance -150 200 PT 16.0 SEC (12.0-15.0) H 12/28/16 04:14 INR 1.28 (0.83-1.16) H 12/28/16 04:14 ICD10 Worksheet Patient Problems: Problems Problem Status Onset Pancreatitis Acute Abdominal pain Acute Abnormal findings on imaging of biliary tract Acute CHF (congestive heart failure) Acute Chest wall pain Acute Dehydration Acute Generalized weakness Acute Palliative care encounter Acute Sacral fracture, closed Acute UTI (urinary tract infection) Acute Urinary tract infection Acute Vomiting Acute
[2016-12-31] MEDS: ENOXAPARIN 40 MG/0.4 ML SYR SC SCH ×2 (09:58→10:07)
[2016-12-31] MEDS: METHYL SALICYLATE TP SCH (10:00)
[2016-12-31] MEDS: MENTHOL TP SCH (10:00)
[2016-12-31] MEDS ORDERED: LIDOCAINE 5% 1 EA PATCH TD SCH (10:15)
--- NOTE | 2016-12-31 10:18 | HOSPPROG ---
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 Will check back this afternoon to see how well she can ambulate - Per my review of the CT scans with doctors Micah and Sanya it is not felt that stent is likely blocking the dilated pancreatic duct, and Dr. Obrien does not recommend any endoscopic procedures at this time. Dr. Obrien was concerned that there may be increased tumor causing pancreatic obstruction. The patient has declined any tumor directed therapies in the past. I reviewed this in detail with Dr. Kumari her primary oncologist. At this time we could consider the possibility of some palliative tumor directed therapy but Dr. Ferrari would like to talk further with radiation oncologist and other consultants before discussing that in detail with the patient. She did talk with the patient in detail today about engaging in some palliative care, however not at this time with hospice as the patient does not feel ready for hospice care. The patient is agreeable to looking at engaging in some palliative the programs otherwise. dispo: at this point disposition for discharge home primarily depends on ambulation with her sore ankle SUBJECTIVE: Now eating moderate amounts of solid food without pain, no nausea no fevers Has new onset and significant worsening of left ankle pain started yesterday. She does give a history of pseudogout in the past. OBJECTIVE Vitals reviewed: Stable without fever Exam: alert oriented skin warm dry color ok resps not labored lungs clear BSs heart regular abd soft nondistended with some epigastric tenderness but no rebound, bowel sounds present; Large stable mid abdominal hernia present without signs of incarceration limbs warm, Her left ankle is fairly swollen and tender with some decrease in range of motion but it is not red or warm at this point iv site ok Objective: Vital Signs Temp Pulse Resp BP Pulse Ox 36.7 C 70 14 134/57 H 95 12/31/16 07:50 12/31/16 07:50 12/31/16 07:50 12/31/16 07:50 12/31/16 07:50 Laboratory Results 12/30/16 04:19 12/30/16 04:19 12/30/16 12/31/16 01/01/17 06:59 06:59 06:59 Intake Total 1100 550 Output Total 1250 350 Balance -150 200 PT 16.0 SEC (12.0-15.0) H 12/28/16 04:14 INR 1.28 (0.83-1.16) H 12/28/16 04:14 ICD10 Worksheet Patient Problems: Problems Problem Status Onset Pancreatitis Acute Abdominal pain Acute Abnormal findings on imaging of biliary tract Acute CHF (congestive heart failure) Acute Chest wall pain Acute Dehydration Acute Generalized weakness Acute Palliative care encounter Acute Sacral fracture, closed Acute UTI (urinary tract infection) Acute Urinary tract infection Acute Vomiting Acute
[2016-12-31] MEDS: LIDOCAINE 5% 1 EA PATCH TD SCH (17:51)
[2016-12-31] MEDS: oxyCODONE IR 5 MG TAB PO PRN ×2 (20:24→23:24)
[2016-12-31] MEDS: CLORAZEPATE 7.5 MG TAB PO SCH (23:30)
[2017-01-01] MEDS: PATCH REMOVAL 1 EA PATCH TD SCH (01:44)
[2017-01-01] MEDS: oxyCODONE IR 5 MG TAB PO PRN ×4 (05:52→23:01)
[2017-01-01 07:18] VITALS: RESP 16
[2017-01-01] MEDS: LIDOCAINE 5% 1 EA PATCH TD SCH (08:57)
[2017-01-01] MEDS: MENTHOL TP SCH (09:45)
[2017-01-01] MEDS: ENOXAPARIN 40 MG/0.4 ML SYR SC SCH (09:45)
[2017-01-01] MEDS: METHYL SALICYLATE TP SCH (09:45)
--- NOTE | 2017-01-01 10:29 | HOSPPROG ---
Hospitalist Progress Note Assessment/Plan: 81 y/o female new to my care 01/01 with h/o ampullary carcinoma with biliary obstruction presenting with stent in place; CT scan on December 27 suggests patency of the stent with #acute pancreatitis (resolving) - suspect increasing local tumor growth to be the cause of her pancreatitis #anemia acute with hx chronic anemia, chronic iron deficiency, hx of ongoing IV iron dosing and intermittent transfusions # acute pseudogout of the left ankle and knee; this is actually painful enough that it is interfering with ambulation at present PLANS: - continue solid foods - continue Celebrex and Lidoderm pain patch for her ankle this morning and follow closely. dispo: at this point disposition for discharge home primarily depends on ambulation with her sore ankle and knee. will ask case management to look into rehab Subjective: continues to have pain in left knee and ankle. unable to ambulate secondary to pain. tolerating diet. denies abd pain and n&V Objective: Vital Signs Temp Pulse Resp BP Pulse Ox 36.2 C 70 16 124/52 H 93 01/01/17 07:17 01/01/17 07:17 01/01/17 07:17 01/01/17 07:17 01/01/17 07:17 Laboratory Results 12/30/16 04:19 12/30/16 04:19 12/31/16 01/01/17 01/02/17 05:59 05:59 05:59 Intake Total 550 400 Output Total 350 550 Balance 200 -150 PT 16.0 SEC (12.0-15.0) H 12/28/16 04:14 INR 1.28 (0.83-1.16) H 12/28/16 04:14 ICD10 Worksheet Patient Problems: Problems Problem Status Onset Vomiting Acute Abdominal pain Acute UTI (urinary tract infection) Acute Sacral fracture, closed Acute CHF (congestive heart failure) Acute Chest wall pain Acute Dehydration Acute Generalized weakness Acute Abnormal findings on imaging of biliary tract Acute Palliative care encounter Acute Urinary tract infection Acute Pancreatitis Acute
--- NOTE | 2017-01-01 13:59 | SOAPPROG ---
SOAP Progress Note Assessment/Plan: Assessment: Assessment/Plan: Assessment: 1. 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 2. Pancreatitis: symptomatically improving 3. Pain in L knee and ankle with hx of pseudogout. Pain in improving today. 4. Disposition - Patient has a strong desire to go home if she can be adequately mobile Plan: - D/C planning - trial of colchicine - f/u with Dr. Lerma this week. Subjective: Says pain in L leg better than yesterday. Abd pain under adequate control. She strongly expresses a desire to be discharged to home instead of a SNF/rehab. 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
[2017-01-01] MEDS: COLCHICINE 0.6 MG CAP/TAB PO SCH ×2 (17:09→21:57)
[2017-01-01] MEDS: CLORAZEPATE 7.5 MG TAB PO SCH (23:05)
[2017-01-02 00:04] VITALS: TEMP 98.5
[2017-01-02] MEDS: oxyCODONE IR 5 MG TAB PO PRN ×3 (05:42→14:36)
[2017-01-02] MEDS: PATCH REMOVAL 1 EA PATCH TD SCH (05:44)
[2017-01-02 09:02] VITALS: BP 159/70; PULSE 70; O2SAT 96
[2017-01-02] MEDS: LIDOCAINE 5% 1 EA PATCH TD SCH (09:09)
--- NOTE | 2017-01-02 12:54 | SOAPPROG ---
SOAP Progress Note Assessment/Plan: Assessment: Assessment/Plan: Assessment: 1. 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 2. Pancreatitis: symptomatically improving 3. Pain in L knee and ankle with hx of pseudogout. Pain in improving today. 4. Disposition - I believe patient is going home today. She will need to follow up with Dr. Patsy Lerma this Tuesday as planned. Patient again voices a strong desire to live independently if possible. Plan: - f/u with Dr. Lerma this week. Subjective: Pain much better. Apparently showered independently this AM Objective: Vital Signs Temp Pulse Resp BP Pulse Ox 36.9 C 70 16 159/70 H 96 01/02/17 00:00 01/02/17 08:00 01/02/17 08:00 01/02/17 08:00 01/02/17 08:00 Laboratory Results 12/30/16 04:19 12/30/16 04:19 12/31/16 01/01/17 01/02/17 23:59 23:59 23:59 Intake Total 450 200 150 Output Total 450 900 400 Balance 0 -700 -250 PT 16.0 SEC (12.0-15.0) H 12/28/16 04:14 INR 1.28 (0.83-1.16) H 12/28/16 04:14 Physical Exam - Physical Exam General Appearance: alert, no apparent distress Respiratory: lungs clear Cardiac/Chest: regular rate, rhythm Abdomen: normal bowel sounds Neuro/Psych: alert, normal mood/affect, oriented x 3 ICD10 Worksheet Patient Problems: Problems Problem Status Onset Pancreatitis Acute Abdominal pain Acute Abnormal findings on imaging of biliary tract Acute CHF (congestive heart failure) Acute Chest wall pain Acute Dehydration Acute Generalized weakness Acute Palliative care encounter Acute Sacral fracture, closed Acute UTI (urinary tract infection) Acute Urinary tract infection Acute Vomiting Acute
[2017-01-02] MEDS: COLCHICINE 0.6 MG CAP/TAB PO SCH (13:42)
[2017-01-02] MEDS: ENOXAPARIN 40 MG/0.4 ML SYR SC SCH (13:43)
[2017-01-02] MEDS: MENTHOL TP SCH (13:43)
[2017-01-02] MEDS: METHYL SALICYLATE TP SCH (13:43)
--- NOTE | 2017-01-02 15:50 | GDS ---
[f rep st] DISCHARGE SUMMARY DISCHARGE DIAGNOSES: 1. Resolved pancreatitis most likely due to her advanced ampullary versus duodenal cancer with loca l regional disease. 2. Left knee and ankle pain most likely due to pseudogout. That is improving. HOSPITAL COURSE AND STAY BY PROBLEM: 1. Pancreatitis: The patient was admitted with abdominal pain. She was found to have a lipase of 818. She was treated supportively and had resolution of her pain. Over the past 2 days, she has be en tolerating a regular diet and is no longer having pain. Her hospital stay was prolonged due to bettina bonilla. 2. Left knee and ankle pain thought to be due to pseudogout: The patient has been unable to weight bear and walk due to pain in her ankle and knee. She has not had any signs of septic joint. She w as started on Celebrex, which did not really help. On 01/01/2017, she was started on low-dose colch icine at a dose of 0.6 mg three times daily. On the day of discharge, she is feeling better. Will plan on discharging her from the hospital, on colchicine 0.6 mg daily with outpatient followup. On physical exam on the day of discharge, blood pressure 159/70, pulse of 70, respiratory rate 16, O 2 saturation 96% on room air. In general, in no acute distress. Pertinent labs and studies done this hospital stay: CT of the abdomen done 12/27/2016, refer to rep ort. DISCHARGE MEDICATIONS: Please refer to discharge medication reconciliation in [facility] for details. DISCHARGE INSTRUCTIONS: The patient will be discharged from the hospital where she should follow up with her oncologist as scheduled. She is also to see her primary care provider in the next 1-2 tommy shaikh to further discuss continuing colchicine for prophylaxis. /[id number]/MODL
== END 2017-01-02 15:21 | disposition home or self-care (01) | DRG 439 ==
LOC: EDUNIT# → INTOOBSV 23:55 → OBSVTOIN 23:55 → UNDOADMOB 23:55 → OBSVTOIN 12-28 00:44 → F3N 12-28 01:13
PROVIDERS: ADMIT Internal Medicine; ATTEND Internal Medicine
DX: K85.80 Other acute pancreatitis without necrosis or infection (principal); C24.1 Malignant neoplasm of ampulla of Vater; M10.462 Other secondary gout, left knee; M10.472 Other secondary gout, left ankle and foot; E03.9 Hypothyroidism, unspecified; D64.9 Anemia, unspecified; M81.0 Age-related osteoporosis without current pathological fracture; Z86.711 Personal history of pulmonary embolism; Z95.3 Presence of xenogenic heart valve; Z95.0 Presence of cardiac pacemaker
CPT/HCPCS: 86870-90; 86905-90; 97161-GP; J1650; Q9967